=== PATIENT | female | born 1945 | race Two or more races ===

== ENCOUNTER 2019-08-04 17:30 | Inpatient (IN) | payer BC, OTHER ==
[~2019-08-04] VITALS: Ht 165.1 cm; Wt 103.7 kg
[2019-08-04] VITALS (12 sets, daily range): BP systolic 106–184; BP diastolic 53–120
[2019-08-04] MEDS ORDERED: ALBUTEROL SULF 2.5 MG/0.5ML(0.5%) NEB SOLN ONE (17:40)
[2019-08-04] MEDS ORDERED: IPRATROPIUM BROM 0.5 MG/2.5ML INH SOL ONE (17:40)
[2019-08-04] MEDS ORDERED: SUCCINYLCHOLINE CHLORIDE 20 MG/ML 10ML VIAL IV ONE (17:45)
[2019-08-04] MEDS ORDERED: methylPREDNISolone SOD SUCC 125 MG/2 ML VL IV ONE (17:45)
[2019-08-04] MEDS ORDERED: ETOMIDATE (2MG/ML) 20ML VIAL IV ONE (17:45)
--- NOTE | 2019-08-04 17:45 | NUR ---
RT NOTE PT WAS INTUBATED VIA ONE ATTEMPT BY ER DR HIGUERA WITH 7.5 ETT AND SECURED WITH ANCHORFAST AT 23 CM AT THE TEETH/24 CM AT THE LIP. + COLOR CHANGE ON CO2 DETECTOR AND BILATERAL CHEST RISE NOTED. BS ARE COARSE TO AUSCULTATION. PT WAS SUCTIONED FOR MODERATE BLOODY RETURN. SPUTUM SAMPLE COLLECTED AND SENT TO LAB. PT PLACED ON VENT V4 ON STATED SETTINGS. VENT IS PLUGGED TO RED OUTLET. ALARMS ARE ON AND AUDIBLE TO NURSING. AMBU BAG AT BEDSIDE AND CONNECTED TO O2 SOURCE. CONT ORDERED. POX 100% Addendum: 08/04/19 at 1807 by Sara Dillard RT Amended: Links added.
[2019-08-04] MEDS: MIDAZOLAM DRIP 50 mg/50mL 50 ML IV SCH (17:47)
[2019-08-04] MEDS ORDERED: PROPOFOL 100 ML IV ONE (17:58)
[2019-08-04] MEDS ORDERED: ALBUTEROL SULF 2.5 MG/0.5ML(0.5%) NEB SOLN NEB ONE (18:00)
[2019-08-04] MEDS ORDERED: IPRATROPIUM BROM 0.5 MG/2.5ML INH SOL NEB ONE (18:00)
[2019-08-04] MEDS: PROPOFOL 100 ML IV SCH ×2 (18:02→23:14)
[2019-08-04 18:10] LABS: Basophils # (auto) 0 uL; Basophils % (auto) 0.4 % (0.0-2.0); Eosinophils # (auto) 0.1 uL; Eosinophils % (auto) 1.4 % (0.0-7.0); Hematocrit 26.4 % (36.0-46.0); Hemoglobin 8.6 g/dL (12.2-16.2); Lymphocytes # (auto) 1.8 uL; Lymphocytes % (auto) 19.6 % (10.0-50.0); Mean Corpuscular Hgb Conc. 32.4 g/dL (32.0-36.0); Mean Corpuscular Volume 92.7 fL (80.0-100.0); Monocytes # (auto) 0.7 uL; Monocytes % (auto) 7.9 % (0.0-12.0); Neutrophils # (auto) 6.6 uL; Neutrophils % (auto) 70.7 % (37.0-80.0); Platelet Count (auto) 152 10^3/uL (140-450); Red Blood Cells 2.85 10^6/uL (4.0-5.20); Red Cell Distribution Width 15.1 % (11.8-14.3); White Blood Cell 9.4 10^3/uL (4.4-10.8)
--- NOTE | 2019-08-04 18:27 | NUR ---
RT NOTE PT WA SEEN BY RT FOR HHN TX. PT TOLERATES WELL INLINE WITH VENTILATOR. HR 99, RR 14, BS EXP WHEEZES, POX 100% Addendum: 08/04/19 at 1835 by Sara Dillard RT Amended: Links added.
[2019-08-04 18:40] LABS: Urine Bacteria NONE SEEN /hpf (None Seen); Urine Blood 2+ /uL (Negative); Urine Specific Gravity 1.009 (1.001-1.035); Urine WBC 1 /hpf (0 - 5)
[2019-08-04 18:46] LABS: Lactic Acid w/Reflex 2.2 mmol/L (0.4-2.0)
[2019-08-04] MEDS ORDERED: NOREPINEPHRINE 8 MG/250ML KIT 250 ML IV ONE (18:47)
[2019-08-04] MEDS: NOREPINEPHRINE 8 MG/250ML KIT 250 ML IV SCH (18:50)
--- NOTE | 2019-08-04 18:55 | NUR ---
RT NOTE ADVANCED ETT TO 24 CM AT THE TEETH PER VERBAL ORDER FROM DR HIGUERA. DR HIGUERA NOTIFIED Addendum: 08/04/19 at 2000 by Sara Dillard RT Amended: Links added.
--- NOTE | 2019-08-04 19:26 | NUR ---
RT NOTE INCREASED VT TO 600 AND DECREASED FIO2 TO 40% POST INTUBATION ABG RESULTS PER DR HIGUERA. REPEAT ABG AT 2200 Addendum: 08/04/19 at 2001 by Sara Dillard RT Amended: Links added.
[2019-08-04] MEDS ORDERED: PROMETHAZINE HCL 25 MG/ML 1ML IV PRN (19:45)
[2019-08-04] MEDS ORDERED: ALBUTEROL SULF 2.5 MG/0.5ML(0.5%) NEB SOLN NEB PRN (19:45)
[2019-08-04] MEDS ORDERED: LACTULOSE 20Gm/30ML SOLN PO PRN (19:45)
[2019-08-04] MEDS ORDERED: OSELTAMIVIR 75 MG CAP PO ONE (19:45)
[2019-08-04] MEDS ORDERED: SODIUM CHLORIDE 0.9% 500 ML IV ONE (19:45)
[2019-08-04] MEDS: OSELTAMIVIR 75 MG CAP PO SCH (19:57)
[2019-08-04] MEDS ORDERED: ENOXAPARIN SOD 40 MG/0.4 ML SYRINGE SC SCH (19:58)
[2019-08-04 20:01] LABS: Magnesium 2.2 mg/dL (1.6-2.6)
[2019-08-04 20:20] LABS: Anion Gap 8 (5-15); Carbon Dioxide 24 mmol/L (21-32); Chloride 110 mmol/L (98-107); Potassium 3.9 mmol/L (3.5-5.1); Sodium 142 mmol/L (136-145)
[2019-08-04 20:21] LABS: Alanine Aminotransferase 72 U/L (13-56); Alkaline Phosphatase 106 U/L (45-117); Aspartate Aminotransferase 74 U/L (15-37); BUN/Creatinine Ratio 13.2; Bilirubin, Total 0.5 mg/dL (0.2-1.0); Blood Urea Nitrogen 16 mg/dL (7-18); Calcium 7.4 mg/dL (8.5-10.1); GFR African American 56 mL/min; GFR Non-African American 46 mL/min; Glucose 140 mg/dL (74-106)
[2019-08-04 20:22] LABS: Albumin 2.8 g/dL (3.4-5.0)
--- NOTE | 2019-08-04 20:22 | NUR ---
RT NOTE ROUTINE VENT CHECK DONE. PT IS INTUBATED AND ON VENT V4 ON STATED SETTINGS IN THE ER. VENT IS PLUGGED TO RED OUTLET. ALARMS ARE ON AND AUDIBLE TO NURSING. AMBU BAG AT BEDSIDE AND CONNECTED TO O2 SOURCE. 7.5 ETT IS SECURED WITH ANCHORFAST AT 24 CM AT THE TEETH. BILATERAL BS ARE CTA. PT APPEARS COMFORTABLE AT THIS TIME. CONT ORDERED. POX 98% Addendum: 08/04/19 at 2025 by Sara Dillard RT Amended: Links added.
[2019-08-04] MEDS: SODIUM CHLORIDE 0.9% 1,000 ML IV SCH (20:42)
[2019-08-04] MEDS: LEVOFLOXACIN 500MG 100 ML IV SCH (20:44)
[2019-08-04] MEDS ORDERED: MORPHINE SULF INJ 2 MG/ML SYRINGE 1ML IV PRN (21:00)
[2019-08-04] MEDS ORDERED: NITROGLYCERIN 0.4 MG SL TAB SL PRN (21:00)
[2019-08-04] MEDS ORDERED: ENOXAPARIN SOD 80 MG/0.8ML SYRINGE SC ONE (21:15)
--- NOTE | 2019-08-04 22:00 | NUR ---
Admit to ICU from ER on vent CRISTI AVALOS Admitted to ICU via gurney on toolroom checker, intubated and being bagged by Respiratory Therapist. Patient transfered to bed, connected to mechanical ventilator by therapist, KESHIA at bedside. Patient connected to ICU monitoring, weighed by bedscale, oriented to Tamika Toth, primary RN, unit, ventilator and sedation. NOTE: PT TO UNIT ON DIPRIVAN GTT 40 MCG/KG/MIN, AND VERSED GTT 5 MG/HR. PT RESTING COMFORTABLY ON MECH VENT. 18 G IV TO L HAND, 20 G TO L UPPER CHEST, AND 20 GUAGE TO R HAND. ALL B&P. SR ON CONTENT CREATION MANAGER. OGT IN PLACE CLAMPED. SIMPSON TO GRAVITY DRAINING CLEAR YELLOW URINE WITH FEW SMALL CLOTS. BLANCHABLE PINK SKIN TO SACRAL AREA. OPTIFOAM GENTLE SACRAL DRESSING PLACED. PT REPOSITIONED WITH PILLOWS TO OFFLOAD BONY PROMINECES. NO INDICATION OF PAIN OBSERVED.
--- NOTE | 2019-08-04 22:10 | NUR ---
RT NOTE ROUTINE VENT CHECK DONE. PT IS INTUBATED AND ON VENT V4 ON STATED SETTINGS IN THE ICU. VENT IS PLUGGED TO RED OUTLET. ALARMS ARE ON AND AUDIBLE TO NURSING. AMBU BAG AT BEDSIDE AND CONNECTED TO O2 SOURCE. 7.5 ETT IS SECURED WITH ANCHORFAST AT 24 CM. BILATERAL BS ARE CTA. PT WAS TRANSPORTED TO ICU WITH ADRIAN HUNG AND KISHA GARCIA WITHOUT INCIDENT. PT WAS PLACED BACK ON VENT WITH SAME SETTINGS POST TRANSPORT. PT APPEARS COMFORTABLE AT THIS TIME. CONT ORDERED. POX 100% Addendum: 08/04/19 at 2328 by Sara Dillard RT Amended: Links added.
--- NOTE | 2019-08-04 22:30 | NUR ---
PT SON TO UNIT
[2019-08-05] VITALS (93 sets, daily range): BP systolic 89–169; BP diastolic 42–85
[2019-08-05] MEDS: ALBUTEROL SULF 2.5 MG/0.5ML(0.5%) NEB SOLN NEB SCH ×5 (00:09→23:55)
[2019-08-05] MEDS: IPRATROPIUM BROM 0.5 MG/2.5ML INH SOL NEB SCH ×5 (00:09→23:55)
[2019-08-05 04:27] LABS: Basophils # (auto) 0 uL; Eosinophils # (auto) 0 uL; Hematocrit 41.6 % (36.0-46.0); Hemoglobin 13.7 g/dL (12.2-16.2); Lymphocytes # (auto) 0.5 uL; Lymphocytes % (auto) 3.6 % (10.0-50.0); Mean Corpuscular Hemoglobin 29.3 pg (28.0-32.0); Mean Corpuscular Hgb Conc. 32.9 g/dL (32.0-36.0); Monocytes # (auto) 0.3 uL; Monocytes % (auto) 1.9 % (0.0-12.0); Neutrophils # (auto) 13.5 uL; Neutrophils % (auto) 94.5 % (37.0-80.0); Platelet Count (auto) 216 10^3/uL (140-450); Red Blood Cells 4.67 10^6/uL (4.0-5.20); Red Cell Distribution Width 14.9 % (11.8-14.3); White Blood Cell 14.2 10^3/uL (4.4-10.8)
[2019-08-05 04:39] LABS: Albumin 2.8 g/dL (3.4-5.0); BUN/Creatinine Ratio 14.4; Calcium 7.4 mg/dL (8.5-10.1); Potassium 4.1 mmol/L (3.5-5.1)
[2019-08-05 04:42] LABS: Bilirubin, Total 0.4 mg/dL (0.2-1.0); Total Protein 6.2 g/dL (6.4-8.2)
[2019-08-05] MEDS: methylPREDNISolone SOD SUCC 40 MG/ML VL IV SCH ×4 (05:45→17:24)
[2019-08-05] MEDS: PROPOFOL 100 ML IV SCH ×6 (06:30→23:13)
--- NOTE | 2019-08-05 07:15 | NUR ---
REPORT RECEIVED FROM LABORER/KEY MAN NURSE. PATIENT RESTING IN BED AT THIS TIME. RESPIRATIONS EVEN AND UNLABORED INTUBATED AND SEDATED. NO SIGNS OF ACUTE DISTRESS NOTED. BED IN LOW POSITION. WILL CONTINUE TO MONITOR.
[2019-08-05] MEDS: SODIUM CHLORIDE 0.9% 1,000 ML IV SCH ×3 (07:34→19:15)
[2019-08-05] MEDS: OSELTAMIVIR 75 MG CAP PO SCH (07:57)
[2019-08-05] MEDS: ENOXAPARIN SOD 120 MG/0.8 ML SYRINGE SC SCH ×4 (09:30→22:09)
[2019-08-05] MEDS: MIDAZOLAM DRIP 50 mg/50mL 50 ML IV SCH ×3 (09:31→20:32)
--- NOTE | 2019-08-05 10:20 | NUR ---
DIRECTOR OF DIGITAL MARKETING AT BEDSIDE
[2019-08-05] MEDS ORDERED: OPTISON 3ml Vial for INJ IV ONE ×2 (10:45→10:49)
--- NOTE | 2019-08-05 10:53 | NUR ---
ADMINISTERED OPTISON PER PROTOCOL DURING ECHOCARDIOGRAM, LOT# [id number], EXP 05/22/2020.
--- NOTE | 2019-08-05 11:00 | NUR ---
WOUND CARE NOTE: IN TO SEE PATIENT AT THIS TIME FOR SKIN INTEGRITY MONITORING. PATIENT WAS ADMITTED RECENTLY TO [facility] WITH THE DIAGNOSIS OF ACUTE RESPIRATORY FAILURE WITH COPD, ASTHMA EXACERBATION. CURRENT JI SCORE IS 12. SHE IS INTUBATED, SEDATED IN THE ICU AT THIS TIME. SHE IS WOUND FREE AT THIS TIME, WITH PINK, BLANCHABLE BONY PROMINENCES. SKIN/WOUND CARE PLAN IMPLEMENTED. RECOMMEND: FREQUENT TURN SCHEDULE Q 2 HOURS, PRN CONDITION PERMITS, WITH PRESSURE REDISTRIBUTION USING PILLOWS/WEDGES, BID/PRN APPLICATION WITH MOISTURE BARRIER CREAM, OPTIFOAM GENTLE SACRAL DRESSING PREVENTATIVE, DIETARY CONSULT, CONTINUED MONITORING BY WOUND CARE TEAM.
--- NOTE | 2019-08-05 11:02 | NUR ---
DR TALBOT AT BEDSIDE TO ASSESS PATIENT AND DISCUSS PLAN OF CARE. ALL ORDERS NOTED IN CHART. MD UPDATED FAMILY ON PATIENT STATUS.
[2019-08-05] MEDS ORDERED: ASPirin 81 mg TAB PO ONE (11:15)
[2019-08-05] MEDS ORDERED: PANTOPRAZOLE 40 MG/10 ML VIAL INJ IV ONE (11:15)
--- NOTE | 2019-08-05 12:08 | NUR ---
DR ENCISO AT BEDSIDE TO ASSESS PATIENT AND DISCUSS PLAN OF CARE. ALL ORDERS NOTED IN CHART.
--- NOTE | 2019-08-05 13:15 | NUR ---
Nutrition Assessment Notes Please refer to link for full assessment notes Est energy needs: [id number] kcals (14-18 kcal/kgBW) Est protein needs: 56-70 gms/day (0.8-1.0 gm/kgAdjBW) Will continue to monitor and reassess prn Addendum: 08/05/19 at [address] Amended: Links added.
--- NOTE | 2019-08-05 16:00 | NUR ---
DR KWAN AT BEDSIDE TO ASSESS PATIENT AND DISCUSS PLAN OF CARE. ALL ORDERS NOTED IN CHART.
--- NOTE | 2019-08-05 16:30 | NUR ---
Respiratory note: INCREASE RR TO [address] KWAN ORDER. PT TOLERATING VENT CHANGE WELL. ABG IN 2 HOURS POST VENT CHANGE. RN AWARE.
[2019-08-05] MEDS: LEVOFLOXACIN 500MG 100 ML IV SCH (17:25)
[2019-08-05] MEDS: NOREPINEPHRINE 8 MG/250ML KIT 250 ML IV SCH (18:45)
--- NOTE | 2019-08-05 20:00 | NUR ---
RECIEVED PT VENTILATED AND SEDATE WITH PROPOFOL GTT AT 45MCG/KG/ AND VERSED GTT AT 6MG/HR, SR 80'S BP STABLE, SEE INTERVENTIONS FOR HEAD TO TOE ASSESSMENT AND VITAL SIGNS, FAMILY IN TO VISIT, UPDATE GIVEN, QUESTIONS ANSWERED, SON PLEASED WITH THE DECREASE IN FIO2
--- NOTE | 2019-08-05 21:01 | NUR ---
Midline Placement: Patient not educated on need for midline placement. Patient sedated. 4Fr 20cm midline inserted via right basilic vein using Ultrasound. Sterile technique utilized. Blood return obtained from the single lumen and flushed easily with NS using proper technique. Midline secured with saline lock; biodisc and occlusive dressing applied. Primary RN notified. Midline lot #[id number]. External length 0cm Internal length 20cm
[2019-08-05] MEDS: ATORVASTATIN 20 MG TAB PO SCH (22:08)
[2019-08-06] VITALS (98 sets, daily range): BP systolic 89–175; BP diastolic 27–94
--- NOTE | 2019-08-06 | NUR ---
UPDATE: VS STABLE, NO VENT CHANGES, NO CHANGES ON GTTS
[2019-08-06] MEDS: methylPREDNISolone SOD SUCC 40 MG/ML VL IV SCH ×4 (00:34→18:14)
--- NOTE | 2019-08-06 02:00 | NUR ---
COMPLETE BATH AND LINEN CHANGE, TOLERATING ACTIVITY WELL, SKIN INTACT
[2019-08-06] MEDS: SODIUM CHLORIDE 0.9% 1,000 ML IV SCH ×3 (03:15→19:35)
[2019-08-06 04:36] LABS: Basophils # (auto) 0 uL; Basophils % (auto) 0.1 % (0.0-2.0); Eosinophils # (auto) 0.1 uL; Eosinophils % (auto) 0.7 % (0.0-7.0); Hematocrit 37.8 % (36.0-46.0); Hemoglobin 12.7 g/dL (12.2-16.2); Lymphocytes # (auto) 0.6 uL; Lymphocytes % (auto) 3.2 % (10.0-50.0); Mean Corpuscular Hemoglobin 29.6 pg (28.0-32.0); Mean Corpuscular Hgb Conc. 33.7 g/dL (32.0-36.0); Monocytes # (auto) 0.8 uL; Monocytes % (auto) 4.1 % (0.0-12.0); Neutrophils # (auto) 17.1 uL; Neutrophils % (auto) 91.9 % (37.0-80.0); Platelet Count (auto) 188 10^3/uL (140-450); Red Cell Distribution Width 14.6 % (11.8-14.3); White Blood Cell 18.6 10^3/uL (4.4-10.8)
[2019-08-06 04:44] LABS: BUN/Creatinine Ratio 17.3; Calcium 7.5 mg/dL (8.5-10.1); Magnesium 2.2 mg/dL (1.6-2.6); Potassium 3.7 mmol/L (3.5-5.1)
[2019-08-06] MEDS: ALBUTEROL SULF 2.5 MG/0.5ML(0.5%) NEB SOLN NEB SCH ×6 (06:00→22:08)
[2019-08-06] MEDS: IPRATROPIUM BROM 0.5 MG/2.5ML INH SOL NEB SCH ×6 (06:00→22:08)
--- NOTE | 2019-08-06 07:00 | NUR ---
REPORT RECEIVED FROM HIGH MAN NURSE. PATIENT RESTING IN BED INTUBATED AND SEDATED. RESPIRATIONS EVEN BUT LABORED, PATIENT USING ACCESSORY MUSCLES. ADJUSTED SEDATIONS PER PROTOCOL. BED IN LOW POSITION. WILL CONTINUE TO MONITOR.
[2019-08-06] MEDS: PROPOFOL 100 ML IV SCH ×5 (08:27→22:39)
--- NOTE | 2019-08-06 08:43 | NUR ---
URINE SENT FOR CULTURE
--- NOTE | 2019-08-06 08:50 | NUR ---
DR TALBOT AT BEDSIDE TO ASSESS PATIENT AND DISCUSS PLAN OF CARE. MD MADE AWARE OF PATIENTS RESPIRATORY STATUS AND URINE CONCENTRATION AND COLOR. ALL ORDERS NOTED IN CHART.
[2019-08-06] MEDS ORDERED: SODIUM CHLORIDE 0.9% 500 ML IV ONE (09:00)
[2019-08-06] MEDS ORDERED: VANCOMYCIN PER PHARMACY 0 MG IV SCH (09:00)
[2019-08-06 09:08] LABS: Urine Bacteria FEW /hpf (None Seen); Urine Blood 3+ /uL (Negative); Urine Mucus FEW (None Seen); Urine Specific Gravity 1.015 (1.001-1.035); Urine WBC 205 /hpf (0 - 5)
[2019-08-06] MEDS ORDERED: VANCOMYCIN 1GM/250ML 250 ML IV ONE (09:30)
[2019-08-06] MEDS: PANTOPRAZOLE 40 MG/10 ML VIAL INJ IV SCH (09:46)
[2019-08-06] MEDS: ASPirin 81 mg TAB PO SCH (09:47)
[2019-08-06] MEDS: ENOXAPARIN SOD 120 MG/0.8 ML SYRINGE SC SCH ×2 (09:47→22:06)
--- NOTE | 2019-08-06 09:51 | NUR ---
DR KIRK AT BEDSIDE TO ASSESS PATIENT AND DISCUSS PLAN OF CARE. ALL ORDERS NOTED IN CHART.
[2019-08-06] MEDS ORDERED: ALBUMIN 25% 100 ML IV ONE (10:00)
[2019-08-06] MEDS ORDERED: FUROSEMIDE 20 MG/2 ML VIAL IV ONE (10:00)
[2019-08-06] MEDS ORDERED: ALBU2TAB4 PO (11:33)
[2019-08-06] MEDS ORDERED: ONDA-143 PO (11:33)
[2019-08-06] MEDS ORDERED: LORA0.5T12 PO (11:33)
[2019-08-06] MEDS ORDERED: CLOP75TA28 PO (11:33)
[2019-08-06] MEDS ORDERED: LEV100T PO (11:33)
[2019-08-06] MEDS ORDERED: ASPI-498 OR (11:33)
[2019-08-06] MEDS ORDERED: OMEP20TA PO (11:33)
[2019-08-06] MEDS ORDERED: METO-169 PO (11:33)
[2019-08-06] MEDS ORDERED: CLON0.2T PO (11:33)
--- NOTE | 2019-08-06 13:38 | NUR ---
CHANGE IN RESPIRATORY STATUS PATIENT HAVING HIGH PEAK PRESSURES IN 50'S ON VENTILATOR AND RR INCREASED TO 30-40'S, TACHYCARDIC 120'S, BLOOD PRESSURE 160'S SYSTOLIC. INCREASED SEDATIONS PER PROTOCOL. RESPIRATORY THERAPIST AT BEDSIDE. PER MD ADMINISTER 15MG ALBUTEROL CONTINUOUS TREATMENT. ALL ORDERS NOTED IN CHART.
[2019-08-06] MEDS ORDERED: ALBUTEROL SULF 2.5 MG/0.5ML(0.5%) NEB SOLN NEB ONE ×3 (13:45→19:00)
--- NOTE | 2019-08-06 15:10 | NUR ---
CHANGE IN RESPIRATORY STATUS PATIENT HAVING HIGH PEAK PRESSURES IN 50'S ON VENTILATOR AND RR INCREASED TO 30'S, TACHYCARDIC 120'S, BLOOD PRESSURE 150'S SYSTOLIC. INCREASED SEDATIONS PER PROTOCOL. RESPIRATORY THERAPIST AT BEDSIDE. PER MD ADMINISTER 15MG ALBUTEROL CONTINUOUS TREATMENT. ALL ORDERS NOTED IN CHART.
[2019-08-06] MEDS: MIDAZOLAM DRIP 50 mg/50mL 50 ML IV SCH ×2 (15:28→23:00)
--- NOTE | 2019-08-06 15:56 | NUR ---
PAGED DR TALBOT AND DR KWAN TO OBTAIN MORE SEDATIONS PATIENT IS AT MAXIMUM RATE ON VERSED AND PROPOFOL. AWAITING CALL BACK.
[2019-08-06] MEDS: BUDESONIDE (INHALATION) 0.5 MG/2 ML NEB NEB SCH ×2 (15:58→18:19)
--- NOTE | 2019-08-06 15:58 | NUR ---
SPOKE TO DR TALBOT ABOUT PATIENTS RESPIRATORY STATUS. PER MD START PATIENT ON FENTANYL DRIP PER PROTOCOL.
--- NOTE | 2019-08-06 16:00 | NUR ---
UNABLE TO TURN PATIENT AT THIS TIME DUE RESPIRATORY STATUS BEING UNSTABLE. WILL CONTINUE TO MONITOR.
[2019-08-06] MEDS: fentaNYL Drip 2500mCg/250mlNS 250 ML IV SCH (16:08)
[2019-08-06] MEDS: LEVOFLOXACIN 500MG 100 ML IV SCH (18:14)
[2019-08-06] MEDS: NOREPINEPHRINE 8 MG/250ML KIT 250 ML IV SCH (18:45)
--- NOTE | 2019-08-06 18:49 | NUR ---
CHANGE IN RESPIRATORY STATUS PATIENT HAVING HIGH PEAK PRESSURES IN 50'S ON VENTILATOR AND RR INCREASED TO 30'S-40'S, TACHYCARDIC 130'S, BLOOD PRESSURE 150'S SYSTOLIC. INCREASED SEDATIONS PER PROTOCOL. RESPIRATORY THERAPIST AT BEDSIDE. PER MD ADMINISTER 15MG ALBUTEROL CONTINUOUS TREATMENT AND START PATIENT ON PARALYTIC. ALL ORDERS NOTED IN CHART.
--- NOTE | 2019-08-06 19:05 | NUR ---
ABOUT 4 MIN AFTER PT RECEIVING HER SCHEDULED TX @ 1126, PT BEGAN TO GO GHANSHYAM BRONCHOSPASM. HR WENT TO THE 120-130S, RR 20-40 AND SPO2 DROPPED TO THE MID 80S. TIGHT EXP WHEEZING HEARD ON RIGHT SIDE AND LEFT SIDE WAS VERY DIMINISHED. DR. KWAN WAS CALLED AND 15MG ALBUTEROL WAS ORDERED WELL A PARALYTIC. 15MG ALBUTEROL WAS GIVEN @ THIS TIME
[2019-08-06] MEDS: ATRACURIUM BESYLATE 1,000 MG in D5W 5% 150 ML IV SCH (19:45)
--- NOTE | 2019-08-06 20:05 | NUR ---
SPOKE TO DR KWAN TO INFORM OF PATIENT RESPIRATORY STATUS. INSPIRATORY PRESSURES CONTINUE TO REMAIN IN THE 50'S AFTER PARALYTIC ON BOARD. PER MD PLACE PATIENT ON PRESSURE CONTROL SETTINGS AND ABG IN 1 HOUR. ALL ORDERS NOTED IN CHART AND RESPIRATORY THERAPIST INFORMED.
--- NOTE | 2019-08-06 20:41 | NUR ---
SPOKE TO DR KWAN ON PATIENT VENTILATOR CHANGES AND INCREASE IN CO2 TO 80'S PER MD RESPIRATORY THERAPIST TO ADJUST RESPIRATORY RATE NEEDED. INFORMED RESPIRATORY THERAPIST.
--- NOTE | 2019-08-06 20:45 | NUR ---
ASSUMED CARE, AT THIS TIME FIO2 40% PC 25 RATE 22 PIP 29.6 ETCO2 55, SA02 97% HR 130'S, BP 104/39, PREVIOUSLY TRACIUM GTT STARTED PER PROTOCOL ORDERED AND TITRATED FOR TOF GOAL 2/4, CURRENTLY TRACIUM GTT AT 3 MCG/KG/MIN TOF 0/4, WILL DECRESED TO 2, SEE INTERVENTIONS FOR HEAD TO TOE ASSESSMENT, PT HEMODYNAMICALLY UNSTABLE AT THIS TIME, NOT REPOSITIONED
--- NOTE | 2019-08-06 21:30 | NUR ---
TOF REMAINS 0/4, TRACIUM GTT NOW @ 1MCG/KG/MIN, ABG DRAWN BY RT AND REPORTED TO DR. KWAN BY RT, ORDERS RECIEVED TO GIVE 3 AMPS SODIUM BICARBONATE IV, ABG TO FOLLOW IN 1 HR POST
[2019-08-06] MEDS ORDERED: SODIUM BICARBONATE 8.4% INJ 50ML SYRINGE ONE (21:32)
[2019-08-06] MEDS ORDERED: SODIUM BICARBONATE 8.4 % INJ 50ML VIAL IV ONE ×2 (21:45→23:00)
--- NOTE | 2019-08-06 22:00 | NUR ---
FIO2 DECREASED TO 30% BY RT AT 2208, TOF NOW 4/4, TRACIUM GTT INCREASED TO 2 MCG/KG/MIN , SBP HOVERING IN THE 90'S
[2019-08-06] MEDS: ATORVASTATIN 20 MG TAB PO SCH (22:05)
[2019-08-06] MEDS: ACETYLCYSTEINE 20%(200MG/ML) SOL 4ML NEB SCH (22:08)
--- NOTE | 2019-08-06 22:42 | NUR ---
G DRAWN BY RT AND RESULTS REPORTED TO DR. KWAN BY RT
--- NOTE | 2019-08-06 23:10 | NUR ---
2 AMPS SODIUM BICARBONATE GIVEN THEN 1/2NS WITH 2 AMPS BICARB TO FOLLOW AT 80MLS/HR
[2019-08-06] MEDS: SODIUM BICARBONATE 50ML VIAL 100 ML in SOD CHL 0.45% 1,000 ML IV SCH (23:45)
[2019-08-07] VITALS (99 sets, daily range): BP systolic 91–125; BP diastolic 36–62
[2019-08-07] MEDS: NOREPINEPHRINE 8 MG/250ML KIT 250 ML IV SCH
--- NOTE | 2019-08-07 | NUR ---
SBP 90'S MAP MID 50'S, LEVOPHED GTT STARTED AT 2MCG/MIN, NO CHANGES ON OTHER GTTS, MAX PROPOFOL, MAX FENTANYL, MAX VERSED, RESPIRATORY STATUS MORE STABLE, FIO2 30% RATE 22 PIP 31 ETCO2 42 SAO2 95%, TOF3/4, TRACIUM GTT NOW 5MC/KG/MIN
[2019-08-07] MEDS: methylPREDNISolone SOD SUCC 40 MG/ML VL IV SCH ×4 (00:12→18:07)
--- NOTE | 2019-08-07 01:30 | NUR ---
PT TRIED TO REPOSITION ONTO RIGHT SIDE.. DESATURATED TO SAO2 89-90% PLACED BACK ONTO BACK, BUT DID RECOVER AFTER ABOUT 15MIN
[2019-08-07] MEDS: IPRATROPIUM BROM 0.5 MG/2.5ML INH SOL NEB SCH ×6 (01:55→22:14)
[2019-08-07] MEDS: ALBUTEROL SULF 2.5 MG/0.5ML(0.5%) NEB SOLN NEB SCH ×6 (01:55→22:14)
--- NOTE | 2019-08-07 02:45 | NUR ---
TOF GOAL NOW AT 2/4 WITH TRACIUM GTT AT 5MCG/KG/MIN
[2019-08-07] MEDS: SODIUM CHLORIDE 0.9% 1,000 ML IV SCH ×3 (03:15→18:51)
[2019-08-07 03:50] LABS: Basophils # (auto) 0 uL; Eosinophils # (auto) 0 uL; Hematocrit 35.8 % (36.0-46.0); Lymphocytes # (auto) 0.5 uL; Lymphocytes % (auto) 2.7 % (10.0-50.0); Mean Corpuscular Hemoglobin 29.4 pg (28.0-32.0); Mean Corpuscular Hgb Conc. 33.5 g/dL (32.0-36.0); Mean Corpuscular Volume 87.9 fL (80.0-100.0); Monocytes % (auto) 5.1 % (0.0-12.0); Neutrophils # (auto) 17.8 uL; Neutrophils % (auto) 92.2 % (37.0-80.0); Platelet Count (auto) 205 10^3/uL (140-450); Red Blood Cells 4.07 10^6/uL (4.0-5.20); Red Cell Distribution Width 14.8 % (11.8-14.3); White Blood Cell 19.3 10^3/uL (4.4-10.8)
[2019-08-07 04:05] LABS: Magnesium 2.3 mg/dL (1.6-2.6)
[2019-08-07 04:08] LABS: BUN/Creatinine Ratio 19.4
[2019-08-07 04:23] LABS: Potassium 2.9 mmol/L (3.5-5.1)
--- NOTE | 2019-08-07 05:00 | NUR ---
K+ 2.9, MESSAGE LEFT WITH DR. TALBOT ANSWERING SERVICE, PT OOZING BLOOD FROM RIGHT UPPER ARM MIDLINE SITE AND OLD VENIPUNCTURE SITE ON LEFT HAND, MIDLINE DRSG CHANGED
[2019-08-07] MEDS ORDERED: VANCOMYCIN 1GM/250ML 250 ML IV SCH (06:00)
--- NOTE | 2019-08-07 06:00 | NUR ---
PARTIAL BATH AND RAYMON CHANGED, PT TOLERATED THE ACTIVITY AT THIS TIME, TRACILUM GTT AT 4MCG/KG/MIN TOF 2/4 , SPB 120'S MAP >62, LEVO GTT TURNED OFF, NO FURTHER VENT CHANGES, RECIEVED CALL FROM DR. TALBOT, ORDERS RECIEVED FOR RAUL PADILLA
[2019-08-07] MEDS: BUDESONIDE (INHALATION) 0.5 MG/2 ML NEB NEB SCH ×2 (06:15→18:23)
[2019-08-07] MEDS: ACETYLCYSTEINE 20%(200MG/ML) SOL 4ML NEB SCH ×3 (06:15→22:14)
[2019-08-07] MEDS ORDERED: POTASSIUM CHL 20MEQ/100ML 200 ML IV ONE (06:23)
[2019-08-07] MEDS: POTASSIUM CHL 20MEQ/100ML 100 ML IV SCH ×4 (06:30→22:13)
--- NOTE | 2019-08-07 07:00 | NUR ---
REPORT ENDORSED TO ABISAI CAMPBELL
[2019-08-07 07:30] LABS: INR 1.04 (0.9-1.15)
--- NOTE | 2019-08-07 08:00 | NUR ---
TRAIN OF FOUR 2 OF 4 TWITCHES NOTED USING BASELINE MA 6. PARALYTIC ATRACURIUM 4.5 MCG/KG/MIN.
--- NOTE | 2019-08-07 08:00 | NUR ---
TURNING HELD- PATIENT HEMODYNAMICALLY UNSTABLE WILL CONTINUE TO REASSESS
[2019-08-07] MEDS: PROPOFOL 100 ML IV SCH ×4 (08:16→22:47)
[2019-08-07] MEDS: MIDAZOLAM DRIP 50 mg/50mL 50 ML IV SCH ×2 (09:29→11:37)
[2019-08-07] MEDS: ASPirin 81 mg TAB PO SCH (10:00)
[2019-08-07] MEDS: ENOXAPARIN SOD 120 MG/0.8 ML SYRINGE SC SCH ×2 (10:00→22:13)
--- NOTE | 2019-08-07 10:22 | NUR ---
PATIENTS SON AT BEDSIDE UPDATED ON STATUS THROUGHOUT THE NIGHT AND PLAN OF CARE. ADDRESSED CONCERNS.
--- NOTE | 2019-08-07 11:10 | NUR ---
TRAIN OF FOUR 2 OF 4 TWITCHES NOTED USING BASELINE MA 6. PARALYTIC ATRACURIUM 4.5 MCG/KG/MIN.
[2019-08-07] MEDS: PANTOPRAZOLE 40 MG/10 ML VIAL INJ IV SCH (11:36)
--- NOTE | 2019-08-07 13:45 | NUR ---
DR KWAN AT BEDSIDE DISCUSSED PLAN OF CARE, NEW ORDERS RECEIVED
[2019-08-07] MEDS: SODIUM BICARBONATE 50ML VIAL 100 ML in SOD CHL 0.45% 1,000 ML IV SCH (13:57)
--- NOTE | 2019-08-07 14:09 | NUR ---
DR TALBOT AT BEDSIDE
[2019-08-07] MEDS ORDERED: FUROSEMIDE 40 MG/4 ML VIAL IV ONE (14:15)
[2019-08-07 15:19] LABS: BUN/Creatinine Ratio 23.7; Calcium 6.4 mg/dL (8.5-10.1); Potassium 3.4 mmol/L (3.5-5.1)
--- NOTE | 2019-08-07 16:00 | NUR ---
TRAIN OF FOUR 2 OF 4 TWITCHES NOTED USING BASELINE MA 6. PARALYTIC ATRACURIUM 4.5 MCG/KG/MIN.
[2019-08-07] MEDS: PIPERACILLIN-TAZOB 3.375GM 100 ML IV SCH ×2 (16:20→22:13)
[2019-08-07] MEDS: fentaNYL Drip 2500mCg/250mlNS 250 ML IV SCH (17:45)
--- NOTE | 2019-08-07 17:54 | NUR ---
Assessment Pt is a 74 yr old intubated female. Pt's son was bedside and answered question on behalf of patient. Pt lives with her boyfriend and her son Beka, is her emergency contact at [phone]. Pt uses 02 and is was mostly independent with ADL's. Pt's Primary is Bigot, no AD on file and pt receives SSDI of 1300 about. No HH and lots of family support. Further needs will be assessed closer to d/c. Addendum: 08/08/19 at 1757 by GIANA HOWELL Amended: Links added.
--- NOTE | 2019-08-07 20:00 | NUR ---
ASSESSMENT: TOF 4/4, SATS 97%, RR 21, NON LABORED. VENTED - 7.5 FR AT 26 CM LIP LINE. ETT SUCTION, NO SECRETIONS. ORAL CARE PROVIDED. SIMPSON CATH TO DD, YELLOW URINE WITH LARGE AMT. OF SEDIMENT. ABDOMEN - LARGE AND SOFT, NO BM AT THIS TIME, HYPOACTIVE BOWEL SOUNDS. NGT CLAMPED. IV TO RFA #20 X2 INTACT. MID LINE TO RUP INTACT WITH SEDATION INFUSING THRU IT. ATRACARIUM INFUSING THRU IV SITE TO LFA. GENERALIZED EDEMA, PITTING, NO WEEPING. PLACED ON BED ROTATION. SKIN INTACT AT THIS TIME. HEELS CLEAR, WELL ELBOW. SACRUM WITH PROPHYLACTIC DRESSING. VSS, AFEBRILE. PUPILS SLUGGISH BILATERALLY. CONTINUES ON FENTANYL, VERSED AND PROPOFOL, BICARB DRIP CONTINUES WELL. WILL CONTINUE TO MONITOR.
[2019-08-07] MEDS: LINEZOLID 600MG/300ML 300 ML IV SCH (21:03)
[2019-08-07] MEDS: ATORVASTATIN 20 MG TAB PO SCH (22:13)
[2019-08-07] MEDS ORDERED: ATRACURIUM BESYLATE (10 MG/ ML) 10 ML VIAL ONE (22:44)
[2019-08-07 23:23] LABS: BUN/Creatinine Ratio 22.4; Calcium 6.9 mg/dL (8.5-10.1); Potassium 4.3 mmol/L (3.5-5.1)
[2019-08-08] VITALS (88 sets, daily range): BP systolic 104–158; BP diastolic 49–79
--- NOTE | 2019-08-08 | NUR ---
TOF 4/4, PT. RESPONDS TO DEEP PAINFUL STIMULI BY SLIGHTLY GRIMACING. SEDATION AND ATRACARIUM CONTINUES. LUNGS SOUNDS WHEEZY, DIMINISHED AT BASES. NO SECRETIONS DURING ETT SUCTION. URINE - SEDIMENTOUS, YELLOW. CONTINUES ON BED ROTATION.
[2019-08-08] MEDS: PROPOFOL 100 ML IV SCH ×5 (01:53→23:47)
[2019-08-08] MEDS: ATRACURIUM BESYLATE 1,000 MG in D5W 5% 150 ML IV SCH ×2 (01:56→06:00)
[2019-08-08] MEDS: methylPREDNISolone SOD SUCC 40 MG/ML VL IV SCH ×3 (01:59→11:52)
[2019-08-08] MEDS: ALBUTEROL SULF 2.5 MG/0.5ML(0.5%) NEB SOLN NEB SCH ×7 (02:24→23:54)
[2019-08-08] MEDS: IPRATROPIUM BROM 0.5 MG/2.5ML INH SOL NEB SCH ×7 (02:24→23:54)
--- NOTE | 2019-08-08 04:00 | NUR ---
TOF 4/4, SATS 96%, NO HIGH PEEP, VOLUMES WNL. VSS. COMPLETE BED BATH GIVEN, DELMY CARE PROVIDED, LINEN CHANGED. WILL CONTINUE TO MONITOR.
[2019-08-08] MEDS: SODIUM BICARBONATE 50ML VIAL 100 ML in SOD CHL 0.45% 1,000 ML IV SCH ×2 (04:06→17:00)
[2019-08-08] MEDS: fentaNYL Drip 2500mCg/250mlNS 250 ML IV SCH ×2 (04:49→20:30)
[2019-08-08] MEDS: MIDAZOLAM DRIP 50 mg/50mL 50 ML IV SCH ×3 (05:07→23:46)
[2019-08-08] MEDS: PIPERACILLIN-TAZOB 3.375GM 100 ML IV SCH ×3 (05:30→23:02)
[2019-08-08] MEDS: BUMETANIDE 2.5mg/10ml (0.25 mg/ml) INJ IV SCH ×2 (05:30→18:29)
[2019-08-08 05:37] LABS: Basophils # (auto) 0 uL; Basophils % (auto) 0.1 % (0.0-2.0); Eosinophils # (auto) 0 uL; Hematocrit 33.8 % (36.0-46.0); Hemoglobin 11.4 g/dL (12.2-16.2); Lymphocytes # (auto) 0.5 uL; Lymphocytes % (auto) 3.2 % (10.0-50.0); Mean Corpuscular Hemoglobin 29.7 pg (28.0-32.0); Mean Corpuscular Hgb Conc. 33.7 g/dL (32.0-36.0); Mean Corpuscular Volume 88.3 fL (80.0-100.0); Monocytes # (auto) 0.8 uL; Monocytes % (auto) 5.4 % (0.0-12.0); Neutrophils # (auto) 13.1 uL; Neutrophils % (auto) 91.3 % (37.0-80.0); Platelet Count (auto) 146 10^3/uL (140-450); Red Blood Cells 3.83 10^6/uL (4.0-5.20); Red Cell Distribution Width 14.7 % (11.8-14.3); White Blood Cell 14.4 10^3/uL (4.4-10.8)
[2019-08-08] MEDS: ACETYLCYSTEINE 20%(200MG/ML) SOL 4ML NEB SCH ×3 (05:48→20:18)
--- NOTE | 2019-08-08 08:40 | NUR ---
SPOKE WITH DR KWAN UPDATED ON RECENT ABG AND CHEST XRAY. RECEIVED NEW ORDERS
--- NOTE | 2019-08-08 08:45 | NUR ---
ETT REPOSITIONED TO 27CM TO THE UPPER LIP, PER CHEST X-RAY REPORT AND DR KWAN. PT TOLERATING WELL.
[2019-08-08] MEDS: LINEZOLID 600MG/300ML 300 ML IV SCH ×2 (08:59→20:00)
--- NOTE | 2019-08-08 09:58 | NUR ---
PATIENT TRANSPORTED TO RADIOLOGY DEPARTMENT FOR CT SCAN ORDERED TRANSPORTED WITH RESPIRATORY THERAPY, BEDSIDE RN AND UPHOLSTERER LIMOUSINE AND HEARSE. CONNECTED TO PORTABLE VENTILATOR AND PORTABLE ELECTRICAL SYSTEMS DRAFTER. PATIENTS VITALS STABLE AT TIME OF TRANSPORT
--- NOTE | 2019-08-08 10:28 | NUR ---
PATIENT RETURNED FROM RADIOLOGY DEPARTMENT DESATURATION NOTED DURING TRANSFER TO CT TABLE. PULSE OX DROPPED TO 85%, RESPIRATORY THERAPIST BAGGED AND SATURATION INCREASED TO 100% THEN RECONNECTED TO PORTABLE VENTILATOR. STABLE VITALS DURING TRANSPORT BACK TO ICU. PATIENT RECONNECTED TO ICU MONITORS AND VENTILATOR. WILL CONTINUE TO MONITOR
[2019-08-08] MEDS: BUDESONIDE (INHALATION) 0.5 MG/2 ML NEB NEB SCH ×2 (10:42→18:10)
[2019-08-08] MEDS: PANTOPRAZOLE 40 MG/10 ML VIAL INJ IV SCH (11:51)
[2019-08-08] MEDS: ASPirin 81 mg TAB PO SCH (11:52)
[2019-08-08] MEDS: ENOXAPARIN SOD 120 MG/0.8 ML SYRINGE SC SCH ×2 (11:52→22:00)
[2019-08-08] MEDS: SODIUM CHLORIDE 0.9% 1,000 ML IV SCH ×2 (11:53→20:30)
--- NOTE | 2019-08-08 12:17 | NUR ---
SEDATION VACATION HELD- PATIENT UNSTABLE AT THIS TIME Addendum: 08/08/19 at 1217 by Orin Burks RN Amended: Links added.
--- NOTE | 2019-08-08 12:19 | NUR ---
Nutrition Follow-up Notes Wt.: 114.0 kg today. Pt's off the floor for a procedure when rounded this morning. Pt's currently intubated, sedated with Propofol @ 35.934 ml/hr, providing 964 kcal from Fat. Pt remains NPO, no order for alternate nutrition support yet at this time. Noted pt's for active Pulmonary and Cardiology consult. Est. Needs based on AdBW 71 k-175 kcal (20-25 kcal/kgAdBW), 71-85 gms pro (1.0-1.2 gms/kgAdBW). Will continue to monitor pertinent labs and reassess nutrient need prn Labs: Gluc 211 H, BUN 34 H, Cr 1.52 H, Ca 6.9 L, Trop I 0.508 H, Tpro 6.2 L, Alb 2.8 L Skin: Cyrus scale 11, high risk, skin intact per business risk consultant. GI: Pt's no bowel activity since 08/04/19 per business risk consultant. PES: Increased nutrient needs r/t acute/chronic medical condition aeb sedated, intubated, mod hypoalbuminemia, NPO. Altered nutrition related lab values r/t current/chronic medical condition aeb hyperglyc, hyperchlor, hypocalc, hypoalb, Elev RFTs, Elev LFTs, Obesity r/t food intake more than body requirement aeb 191% IBW and BMI of 39.8 kg/m2 and increased body adiposity Will continue to monitor NPO status, skin status, pertinent labs and weight trend. F/u in 2 to 3 days. Rec.: 1.) If still NPO in next 36 hrs, consider alternate/EN support of Jevity 1.2 Jose Roberto @ 35 ml/hr goal rate as tolerated while on current Propofol rate. 2.) If Albumin continues trending down, consider Prostat 1 pkt BID. 3.) Advance gradually to oral diet when medically appropriate. 4.) Refer pt to RD for further nutrition education and weight monitoring upon discharge. 5.) Continue current plan of care.
--- NOTE | 2019-08-08 13:08 | NUR ---
PATIENTS SON AT BEDSIDE UPDATED ON PATIENTS STATUS AND PLAN OF CARE. CONCERNS ADDRESSED
[2019-08-08] MEDS ORDERED: methylPREDNISolone SOD SUCC 125 MG/2 ML VL IV ONE (14:00)
[2019-08-08 15:04] LABS: BUN/Creatinine Ratio 24.4; Calcium 6.5 mg/dL (8.5-10.1); Potassium 4.2 mmol/L (3.5-5.1)
[2019-08-08] MEDS ORDERED: LACTULOSE 20Gm/30ML SOLN PO PRN (16:45)
--- NOTE | 2019-08-08 17:25 | NUR ---
DR KWAN AT BEDSIDE DISCUSSED PLAN OF CARE WITH PATIENTS VALERIA DENNISON. NEW ORDERS PLACED
[2019-08-08] MEDS: methylPREDNISolone SOD SUCC 125 MG/2 ML VL IV SCH ×2 (18:29→23:45)
[2019-08-08] MEDS ORDERED: ALBUTEROL SULF 2.5 MG/0.5ML(0.5%) NEB SOLN NEB PRN (19:30)
--- NOTE | 2019-08-08 20:00 | NUR ---
ADMITTED WITH DYSPNEA. FAILED CPAP AND WAS INTUBATED IN OUR ER. MD DIAGNOSIS: RESPIRATORY FAILURE WITH COPD AND ASTHMA EXACERBATION. RASHAD. PATIENT IS MORBIDLY OBESE. ORALLY INTUBATED. ORAL NGT CLAMPED. 50CC OF DARK GREEN WITHDRAWN FROM THE NGT AND RECLAMPED. PUPILS EQUAL AND BRISK. ORAL CARE. SUCTIONED ETT FOR NO SECRETIONS. LUNGS ARE TIGHT, WHEEZY. AT 2030 DROPPED O2 SATURATION TO 87%. RT NOTIFIED. THEY INCREASED THE FIO2 TO 50%, BRINGING THE O2 SAT UP TO 95%. ON ATRACURIUM DRIP. ON DAYSHIFT TODAY, SHE FAILED BEING OFF THIS DRIP. RESTARTED. ABDOMEN SOFT, LARGE AND ROUND. SIMPSON IN PLACE DRAINING CLEAR YELLOW LIQUID TO DOWN DRAIN BAG. PULSES PALPABLE. PLACED HER ON HER BACK. PILLOW UNDER LOWER LEGS KEEPING THE HEELS OFF BED. NSR WITHOUT ECTOPY. NO FEVER. ON MAX DOSES OF FENTANYL, VERSED AND DIPRIVAN. ONE MIDLINE CATHETER AND 4 PERIPHERAL IVS. NPO. ON PRESSURE CONTROL VENTILATION, RATE 22, PRESSURE 27. RR 22. GENERALIZED EDEMA. ON BICARB DRIP. BICARB LEVEL IS 30.6. DR AQUILES CARRENO.
--- NOTE | 2019-08-08 22:00 | NUR ---
INITIAL SUCTIONING, OBTAINED NO SECRETIONS. RT CAME, LAVAGED AND GOT SOME CREAMY SECRETIONS WITH BLOOD TINGE.LUNGS ARE TIGHT. FIO2 STABLE AT 50%. ATRACURIUM KEEPING PATIENT QUIET. REPOSITIONED TO HER LEFT SIDE. GENERALIZED EDEMA. PERIPHERAL IVS SHOW NO REDNESS. ADEQUATE URINE OUTPUT. NSR IN THE 70S. NO ECTOPY. PRESSURE CONTROL VENTILATION, RATE 22, BREATHING 22. PRESSURE IS 27. O2 SAT 93%,
[2019-08-08] MEDS: METOCLOPRAMIDE HCL 5MG/ml INJ 2ml VIAL IV SCH (23:02)
[2019-08-08] MEDS: ATORVASTATIN 20 MG TAB PO SCH (23:02)
[2019-08-09] VITALS (102 sets, daily range): BP systolic 119–169; BP diastolic 56–80
--- NOTE | 2019-08-09 | NUR ---
REPOSITIONED. NSR WITHOUT ECTOPY. STABLE ON SEDATION DRIPS. ABDOMEN SOFT. CLEAR YELLOW LIQUID IN SIMPSON. IVS SHOW NO ADDITIONAL SWELLING , REDNESS. PATIENT IS VERY EDEMETOUS. NORMAL TEMP
--- NOTE | 2019-08-09 02:00 | NUR ---
NO CHANGE IN STATUS. IVS SHOW NO REDNESS. GENERALIZED EDEMA PERSISTS. NSR WITHOUT ECTOPY. GOOD URINE OUTPUT. URINE IS A LIGHT GREEN COLOR NOW.
[2019-08-09] MEDS: PROPOFOL 100 ML IV SCH ×8 (02:39→23:03)
[2019-08-09] MEDS: MIDAZOLAM DRIP 50 mg/50mL 50 ML IV SCH ×6 (02:39→23:03)
--- NOTE | 2019-08-09 03:00 | NUR ---
AM LABS SENT
[2019-08-09] MEDS: ALBUTEROL SULF 2.5 MG/0.5ML(0.5%) NEB SOLN NEB SCH ×6 (03:37→18:03)
[2019-08-09] MEDS: IPRATROPIUM BROM 0.5 MG/2.5ML INH SOL NEB SCH ×6 (03:37→18:03)
[2019-08-09 04:30] LABS: BUN/Creatinine Ratio 28.1; Calcium 6.6 mg/dL (8.5-10.1); Magnesium 2.4 mg/dL (1.6-2.6); Potassium 3.7 mmol/L (3.5-5.1)
--- NOTE | 2019-08-09 04:30 | NUR ---
CHG BATH. LINEN CHANGE. AIR LEAK IN ETT CUFF. ADDED AIR. NSR WITHOUT ECTOPY. NO CHANGE IN DRIP RATES
[2019-08-09 04:33] LABS: Hematocrit 33.4 % (36.0-46.0); Hemoglobin 11.5 g/dL (12.2-16.2); INR 1.07 (0.9-1.15); Mean Corpuscular Hemoglobin 29.9 pg (28.0-32.0); Mean Corpuscular Hgb Conc. 34.4 g/dL (32.0-36.0); Mean Corpuscular Volume 86.9 fL (80.0-100.0); Partial Thromboplastin Time 34.7 sec (23.64-32.05); Platelet Count (auto) 145 10^3/uL (140-450); Red Blood Cells 3.85 10^6/uL (4.0-5.20); Red Cell Distribution Width 14.7 % (11.8-14.3); White Blood Cell 12.1 10^3/uL (4.4-10.8)
[2019-08-09 05:26] LABS: Basophils % (manual) 0 (0.0-2.0); Blast Cells 0; Metamyelocytes % 0; Promyelocytes % 0; Reactive Lymphocytes 0
--- NOTE | 2019-08-09 06:00 | NUR ---
VSS. NO CHANGES
[2019-08-09] MEDS: ACETYLCYSTEINE 20%(200MG/ML) SOL 4ML NEB SCH ×2 (06:12→14:40)
[2019-08-09] MEDS: BUMETANIDE 2.5mg/10ml (0.25 mg/ml) INJ IV SCH ×3 (06:26→21:19)
[2019-08-09] MEDS: methylPREDNISolone SOD SUCC 125 MG/2 ML VL IV SCH ×4 (06:27→23:47)
[2019-08-09] MEDS: PIPERACILLIN-TAZOB 3.375GM 100 ML IV SCH ×3 (06:27→21:19)
[2019-08-09] MEDS: METOCLOPRAMIDE HCL 5MG/ml INJ 2ml VIAL IV SCH ×3 (06:27→21:19)
[2019-08-09] MEDS: SODIUM BICARBONATE 50ML VIAL 100 ML in SOD CHL 0.45% 1,000 ML IV SCH (06:30)
[2019-08-09 07:18] LABS: Band Neutrophils % (manual) 6; Eosinophils % (manual) 1 (0-7); Lymphocytes % (manual) 6 (10.0-50.0); Monocytes % (manual) 4 (0-12); Myelocytes % 1
[2019-08-09] MEDS ORDERED: LIDOCAINE 2%HCL (LOCAL ANESTH.) INJ 20ML MDV ONE (08:10)
[2019-08-09] MEDS ORDERED: LIDOCAINE HCL 2% TOP JELLY 5ML TOP ONE (08:11)
[2019-08-09] MEDS ORDERED: EPINEPHrine HCL 1 MG/1 ML AMP ONE (08:11)
[2019-08-09] MEDS ORDERED: SODIUM CHLORIDE LOCK 0 ML ONE (08:11)
[2019-08-09] MEDS ORDERED: NALOXONE HCL 0.4 MG/ML VIAL ONE (08:13)
[2019-08-09] MEDS ORDERED: FLUMAZENIL 0.1 MG/ML INJ 10ML MDV IV ONE (08:13)
[2019-08-09] MEDS ORDERED: MIDAZOLAM HCL 5 MG/ML-1ML VIAL ONE (08:25)
[2019-08-09] MEDS ORDERED: fentaNYL CITRATE 100 MCG/2 ML VL ONE (08:25)
[2019-08-09] MEDS ORDERED: diphenhdrAMINE HCL 50 MG/1 ML VL ONE (08:25)
[2019-08-09] MEDS ORDERED: POTASSIUM CHL 20MEQ/100ML 100 ML IV ONE (08:30)
[2019-08-09] MEDS ORDERED: ACETYLCYSTEINE 20%(200MG/ML) SOL 4ML ONE (08:38)
[2019-08-09] MEDS: LINEZOLID 600MG/300ML 300 ML IV SCH ×2 (08:40→20:02)
[2019-08-09] MEDS: BUDESONIDE (INHALATION) 0.5 MG/2 ML NEB NEB SCH (09:45)
--- NOTE | 2019-08-09 09:45 | NUR ---
Respiratory note: ROUTINE MED NEB TX NOT GIVEN AT THIS TIME, DUE TO PATIENT UNDERGOING BRONCHOSCOPY BY DR. KWAN. WILL CONTINUE SCHEDULED MED NEB TX'S ORDERED.
--- NOTE | 2019-08-09 10:17 | NUR ---
Respiratory note: DR. KWAN INCREASED PEEP TO +8. ADRIAN GUALLPA IS AWARE. WILL CONTINUE TO MONITOR PT.
[2019-08-09] MEDS: ENOXAPARIN SOD 120 MG/0.8 ML SYRINGE SC SCH ×2 (11:16→21:19)
[2019-08-09] MEDS: PANTOPRAZOLE 40 MG/10 ML VIAL INJ IV SCH (11:16)
[2019-08-09] MEDS: ASPirin 81 mg TAB PO SCH (11:17)
--- NOTE | 2019-08-09 12:32 | NUR ---
Resumed care at 0715, orders reviewed and ongoing assessments being done. Being treated for multiple problems and remains intubated and sedated and receiving neuromuscular blockade with Atracurium. Monitoring TOF Q4 hours. 2 electrodes at left side of denominational and TOF response 3 twitches (75%) blocked. No need to increase is unresponsive with diprivan, versed and FentaNly at max. doses. Dr. Durham in unit performed a bronchoscopy, initiated at 0945. Procedure completed without incident and specimens collected. Jorge CAMPBELL in charge of specimens. Remains on pressure control ventilation. Dr. Durham at bedside once again at 1150 for central line placement. Placed line to left IJ without incident. Chest xray done and okay to use line per Dr. Durham. Earlier obtained consent from lakesha Ireland. Dr. Durham was able to speak to him earlier today.
--- NOTE | 2019-08-09 18:30 | NUR ---
Dr. Hopkins scissors grinder was into round. Discussed condition and reviewed medications and plan of care.
--- NOTE | 2019-08-09 19:30 | NUR ---
FIO2 Patient maintaining O2 saturations 88-89%, RT at bedside to increase Fio2 to 50%. Saturations increased to 91% and sustaining.
--- NOTE | 2019-08-09 20:00 | NUR ---
TOF Electrodes to right side of taoism, no skin issues noted; assessed TOF at level 4 with 3 of 4 twitches noted. Patient maxed on Fentanyl, Diprivan, and Versed with Atracurium infusing at 5 mcg/kg/min. Cough and gag very hypoactive, pupils 2-3 and sluggish, no response to painful stimuli noted. Will maintain current drip rates and continue to monitor.
[2019-08-09] MEDS: NOREPINEPHRINE 8 MG/250ML KIT 250 ML IV SCH ×2 (21:13→21:14)
[2019-08-09] MEDS: ATRACURIUM BESYLATE 1,000 MG in D5W 5% 150 ML IV SCH (21:14)
[2019-08-09] MEDS: ATORVASTATIN 20 MG TAB PO SCH (21:19)
[2019-08-10] VITALS (100 sets, daily range): BP systolic 89–176; BP diastolic 33–82
[2019-08-10] MEDS: BUDESONIDE (INHALATION) 0.5 MG/2 ML NEB NEB SCH ×2 (00:01→05:45)
[2019-08-10] MEDS: IPRATROPIUM BROM 0.5 MG/2.5ML INH SOL NEB SCH ×7 (00:01→17:51)
[2019-08-10] MEDS: ACETYLCYSTEINE 20%(200MG/ML) SOL 4ML NEB SCH ×3 (00:01→15:16)
[2019-08-10] MEDS: ALBUTEROL SULF 2.5 MG/0.5ML(0.5%) NEB SOLN NEB SCH ×7 (00:01→17:51)
[2019-08-10] MEDS: PROPOFOL 100 ML IV SCH ×5 (02:00→19:01)
[2019-08-10] MEDS: MIDAZOLAM DRIP 50 mg/50mL 50 ML IV SCH ×4 (02:00→18:00)
--- NOTE | 2019-08-10 02:00 | NUR ---
TLC DSG Left IJ TLC dressing coming off, oozing noted at insertion site. Changed dressing using sterile technique.
[2019-08-10 03:47] LABS: Hematocrit 34.5 % (36.0-46.0); Hemoglobin 11.8 g/dL (12.2-16.2); Mean Corpuscular Hemoglobin 29.6 pg (28.0-32.0); Mean Corpuscular Hgb Conc. 34.1 g/dL (32.0-36.0); Mean Corpuscular Volume 86.6 fL (80.0-100.0); Platelet Count (auto) 139 10^3/uL (140-450); Red Blood Cells 3.98 10^6/uL (4.0-5.20); Red Cell Distribution Width 14.2 % (11.8-14.3); White Blood Cell 13.1 10^3/uL (4.4-10.8)
[2019-08-10 03:57] LABS: Blast Cells 0; Eosinophils % (manual) 0 (0-7); Metamyelocytes % 0; Myelocytes % 0; Promyelocytes % 0; Reactive Lymphocytes 0
[2019-08-10 04:10] LABS: Potassium 3.4 mmol/L (3.5-5.1)
[2019-08-10 04:14] LABS: BUN/Creatinine Ratio 29.2; Calcium 6.8 mg/dL (8.5-10.1); Magnesium 2.3 mg/dL (1.6-2.6)
[2019-08-10 04:53] LABS: Band Neutrophils % (manual) 6
[2019-08-10 04:54] LABS: Lymphocytes % (manual) 8 (10.0-50.0); Monocytes % (manual) 6 (0-12)
[2019-08-10 04:58] LABS: Basophils % (manual) 0 (0.0-2.0)
[2019-08-10] MEDS: methylPREDNISolone SOD SUCC 125 MG/2 ML VL IV SCH ×3 (06:19→18:40)
[2019-08-10] MEDS: BUMETANIDE 2.5mg/10ml (0.25 mg/ml) INJ IV SCH ×3 (06:19→22:20)
[2019-08-10] MEDS: METOCLOPRAMIDE HCL 5MG/ml INJ 2ml VIAL IV SCH ×3 (06:19→22:20)
[2019-08-10] MEDS: PIPERACILLIN-TAZOB 3.375GM 100 ML IV SCH ×3 (06:19→22:20)
--- NOTE | 2019-08-10 06:21 | NUR ---
TLC DSG Left IJ TLC dressing saturated with blood again; changed dressing using sterile technique and applied Surgicel.
--- NOTE | 2019-08-10 07:10 | NUR ---
REPORT Care endorsed to ADRIAN Santiago
[2019-08-10] MEDS: LINEZOLID 600MG/300ML 300 ML IV SCH ×2 (07:55→20:42)
[2019-08-10] MEDS: ASPirin 81 mg TAB PO SCH (10:00)
[2019-08-10] MEDS: ENOXAPARIN SOD 120 MG/0.8 ML SYRINGE SC SCH ×2 (10:00→22:20)
[2019-08-10] MEDS: PANTOPRAZOLE 40 MG/10 ML VIAL INJ IV SCH (10:02)
[2019-08-10] MEDS: ATRACURIUM BESYLATE 1,000 MG in D5W 5% 150 ML IV SCH (11:00)
[2019-08-10 11:10] LABS: INR 1.12 (0.9-1.15); Partial Thromboplastin Time 34.2 sec (23.64-32.05)
--- NOTE | 2019-08-10 11:38 | NUR ---
Resumed care at 0730, orders reviewed and ongoing assessments being done. Being treated for multiple problems and remains intubated and sedated and receiving neuromuscular blockade with Atracurium. Monitoring TOF Q4 hours. 2 electrodes at left side of pentecostal and TOF response 3 twitches (75%) receptors blocked. No need to increase is unresponsive with diprivan, versed and FentaNly at max. doses. Prior shift reported blood oozing from central line (insertion site). Surgicel snow was applied to area. Upon arrival dressing was saturated. Removed dressing and cleansed per protocol and reapplied Surgicel snow to site and applied a pressure dressing. Continuing to monitor closely. Dr. Keller rounded at 1020 and made him aware that I held scheduled ASA and Lovenox due to the oozing from the central line. Noted that urine color pink and cloudy, possibly due to propofol administration. Collected a urinalysis sample and sent to lab. PT/PTT also collected, no critical values reported. Lety BULLOCK has been communicating with Dr. Durham throughout the shift and making ventilator changes. Remains on pressure support ventilation.
[2019-08-10] MEDS: POTASSIUM CHL 20MEQ/100ML 100 ML IV SCH ×2 (12:11→13:31)
--- NOTE | 2019-08-10 15:43 | NUR ---
Dr. Durham in to round at 1250. Discussed condition and plan of care. Continuing to ooze blood from central line site (left IJ). Dressing removed by Dr. Durham and assessed the situation. Area cleaned and he added a couple of sutures to insertion site and redressed. Continuing to ooze, made Dr. Durham aware. Per Dr. Durham, ordered PICC line placement. Has a midline to right arm and will swap out for a Picc line. Contacted PICC line nurse, Vera. Explained situation to lakesha [place] and he agreed with plan of care and gave consent. Once PICC line is in will remove TLC.
--- NOTE | 2019-08-10 16:58 | NUR ---
PICC line placement Patient significant other educated on need for PICC line placement. All risks and benefits explained and all questions and concerns addressed prior to procedure. Noted past medical history and allergies with no contraindications. INR and Plt counts within acceptable range. 5 fr PICC line inserted via right basilic vein using [employer] US and Tip Location System. Sterile technique with maximum barrier precautions utilized. Blood return obtained from each of the 3 lumens and each flushed easily with NS using proper technique. PICC secured with Stat-lock; biodisc and occlusive dressing applied. Stat portable chest x-ray obtained for PICC tip placement. *Baseline Arm Circumference 38 cm. Internal length 45 cm. External length 0. PICC lot #[id number]
[2019-08-10] MEDS ORDERED: LIDOCAINE 1% (LOCAL ANESTH.) PF 5ml SDV ID ONE (17:00)
--- NOTE | 2019-08-10 17:11 | NUR ---
Okay to use PICC line Xray completed and reviewed. Okay to use PICC line.
[2019-08-10] MEDS: fentaNYL Drip 2500mCg/250mlNS 250 ML IV SCH (18:06)
[2019-08-10 18:07] LABS: Hematocrit 32.1 % (36.0-46.0); Hemoglobin 10.8 g/dL (12.2-16.2); Mean Corpuscular Hemoglobin 29.4 pg (28.0-32.0); Mean Corpuscular Hgb Conc. 33.6 g/dL (32.0-36.0); Mean Corpuscular Volume 87.7 fL (80.0-100.0); Platelet Count (auto) 139 10^3/uL (140-450); Red Blood Cells 3.66 10^6/uL (4.0-5.20); Red Cell Distribution Width 14.3 % (11.8-14.3); White Blood Cell 19.8 10^3/uL (4.4-10.8)
[2019-08-10 18:19] LABS: Basophils % (manual) 0 (0.0-2.0); Blast Cells 0; Eosinophils % (manual) 0 (0-7); Metamyelocytes % 0; Myelocytes % 0; Promyelocytes % 0; Reactive Lymphocytes 0
--- NOTE | 2019-08-10 19:00 | NUR ---
ABG DONE. RESULTS CALLED TO DR KWAN. NEW VENTILATOR CHANGES. RATE 22, PRESSURE 23, PEEP OF 8.
--- NOTE | 2019-08-10 19:00 | NUR ---
FIO2 60%
--- NOTE | 2019-08-10 19:11 | NUR ---
Respiratory note: DR. KWAN NOTIFIED OF ABG RESULTS. NEW VENT ORDERS GIVEN, PC: RR 22, PIP 23, PEEP 8. REPEAT ABG IN 2 HOURS.
--- NOTE | 2019-08-10 20:00 | NUR ---
REPOSITIONED TO THE LEFT. PARALYZED WITH ATRACURIUM. MAX DOSING ON FENTANYL, VERSED, AND DIPRIVAN. PUPILL 3 AND SLUGGISH. ORAL CARE DONE. SUCTIONED ETT FOR NO SECRETIONS. LUNGS DIMINISHED AND CLEAR. ABDOMEN SOFT. NO BM. SIMPSON IN PLACE . SIMPSON DRAINING CLEAR YELLOW LIQUID. BUMEX. 2+ GENERALIZED PITTING EDEMA. PICC LINE NEW TODAY. NO REDNESS , SWELLING OR DRNG AT SITE. PENDING SPUTUM RESULTS FROM SEND OUT LABS. LEFT NECK: PREVIOUS CENTRAL LINE THAT BLED A LOT. LARGE DRESSING WITH FOAM TAPE OVER IT. POTASSIUM 3.4, REPLACED WITH 40 MEQ OF KCL TODAY. PREVENTATIVE OPTIFOAM ON COCCYX. NO BM. NSR WITHOUT ECTOPY. SBP STABLE.
[2019-08-10 20:10] LABS: Band Neutrophils % (manual) 7; Lymphocytes % (manual) 3 (10.0-50.0); Monocytes % (manual) 2 (0-12)
--- NOTE | 2019-08-10 20:14 | NUR ---
Okay to use PICC line, chest xray confirmation. Changed medications to line from left IJ TLC. Started Levophed gtt at 3mkg/min at 1718, noted drop in MAP 59-60 within 30 minutes. Only administered for 15 minutes. BP elevated 154/57, 166/52. MAP holding now. Removed left IJ TLC without incident at 1730, catheter intact. Held pressure for 15 minutes. No more bleeding from that site. At 1747, noted drop in pulse oximetry down to 80% and bucking ventilator, lips and face started to turn pale and no measurable VT, immediately shouted out for help and started bagging with a ambu bag. She responded within 20 seconds, skin color better and pulse oximetry up to 96%. Contacted Dr. Durham and updated in change of status. Per Dr. Durham restart paralytic and place back on am ventilators settings. Lila RT at bedside and informed her of Dr. Durham's orders. Report given to Ashley who will resume care of patient.
--- NOTE | 2019-08-10 20:30 | NUR ---
ABG DONE. NEW VENTILATOR CHANGES. RATE 18, PRESSURE 20, PEEP OF 8. ABG DUE IN ONE HOUR
--- NOTE | 2019-08-10 21:02 | NUR ---
Respiratory note: DR. KWAN NOTIFIED OF ABG RESULTS. NEW VENT ORDERS GIVEN AT THIS TIME, PC- RR 18, PIP 20, PEEP 8, 1.0 I-TIME. ABG TO FOLLOW IN ONE HOUR.
--- NOTE | 2019-08-10 22:00 | NUR ---
ABG WITHIN RANGE. FIO2 DECREASED TO 55%. NO CHANGE IN ATRACURIUM, VERSED, FENTANYL OR DIPRIVAN. LUNGS CLEAR. ORAL CARE DONE. REPOSITIONED TO BACK. SEDIMENT IN TUBING OF SIMPSON. ARMS AND LEGS PUFFY, PITTING EDEMA. CUFF ON RIGHT LOWER LEG. SCD ON LEFT LOWER LEG.
[2019-08-10] MEDS: ATORVASTATIN 20 MG TAB PO SCH (22:20)
[2019-08-10] MEDS: SODIUM CHLOR 0.9% PF (SALINE LOCK) 10ML VIAL/SYR IV SCH (22:21)
[2019-08-11] VITALS (105 sets, daily range): BP systolic 92–132; BP diastolic 39–61
--- NOTE | 2019-08-11 | NUR ---
NO NEW CHANGES. HR 60-70 WITH OUT ECTOPY.
[2019-08-11] MEDS: ALBUTEROL SULF 2.5 MG/0.5ML(0.5%) NEB SOLN NEB SCH ×8 (00:10→22:21)
[2019-08-11] MEDS: IPRATROPIUM BROM 0.5 MG/2.5ML INH SOL NEB SCH ×8 (00:10→22:21)
[2019-08-11] MEDS: ACETYLCYSTEINE 20%(200MG/ML) SOL 4ML NEB SCH ×4 (00:11→22:21)
[2019-08-11] MEDS: BUDESONIDE (INHALATION) 0.5 MG/2 ML NEB NEB SCH ×3 (00:11→18:17)
[2019-08-11] MEDS: methylPREDNISolone SOD SUCC 125 MG/2 ML VL IV SCH ×4 (00:18→19:03)
[2019-08-11] MEDS: MIDAZOLAM DRIP 50 mg/50mL 50 ML IV SCH ×6 (00:19→19:03)
[2019-08-11] MEDS: PROPOFOL 100 ML IV SCH ×7 (00:20→21:12)
[2019-08-11] MEDS: fentaNYL Drip 2500mCg/250mlNS 250 ML IV SCH (02:26)
--- NOTE | 2019-08-11 03:23 | NUR ---
AM LABS DRAWN
--- NOTE | 2019-08-11 04:00 | NUR ---
HAS HAD A STABLE NIGHT. HR OCCASIONALLY DROPS BELOW 60. NSR WITHOUT ECTOPY. LUNGS CLEAR AND DIMINISHED.
[2019-08-11 04:40] LABS: Basophils # (auto) 0 uL; Basophils % (auto) 0.1 % (0.0-2.0); Eosinophils # (auto) 0 uL; Lymphocytes # (auto) 0.4 uL; Monocytes # (auto) 0.8 uL; Monocytes % (auto) 4.5 % (0.0-12.0); Neutrophils # (auto) 17.1 uL; Neutrophils % (auto) 93.4 % (37.0-80.0); Nucleated Red Blood Cells % 0.1 %; Platelet Count (auto) 115 10^3/uL (140-450); Red Blood Cells 3.21 10^6/uL (4.0-5.20); Red Cell Distribution Width 14.2 % (11.8-14.3); White Blood Cell 18.4 10^3/uL (4.4-10.8)
[2019-08-11 04:45] LABS: Potassium 3.3 mmol/L (3.5-5.1)
[2019-08-11 04:50] LABS: Magnesium 2.2 mg/dL (1.6-2.6)
[2019-08-11 04:58] LABS: Hematocrit 28.6 % (36.0-46.0); Hemoglobin 9.6 g/dL (12.2-16.2)
[2019-08-11 04:59] LABS: Mean Corpuscular Hemoglobin 29.8 pg (28.0-32.0); Mean Corpuscular Hgb Conc. 33.6 g/dL (32.0-36.0); Mean Corpuscular Volume 88.7 fL (80.0-100.0)
[2019-08-11 05:09] LABS: Calcium 5.7 mg/dL (8.5-10.1)
[2019-08-11 05:15] LABS: BUN/Creatinine Ratio 35.2
--- NOTE | 2019-08-11 06:00 | NUR ---
HEART RATE HAS BEEN CONSISTENT 65-75 WITH NO ECTOPY. BP IS STABLE. RECTAL PROBE TEMP IS LOW. TAKING ORAL TEMPERATURES. LUNGS DIMINISHED ALL NIGHT. ABDOMEN SOFT. LACTULOSE GIVEN ON DAYS YESTERDAY, NO BM YET. PUFFY 2+ PITTING EDEMA THROUGHOUT BODY. NO SKIN ISSUES. STITCH IN RIGHT NECK WITH FOAM DRESSING COVERING IT. THAT STITCH WAS PLACED BY DR KWAN IN AN ATTEMPT TO CONTROL THE BLEEDING IN THE LEFT INTERNAL JUGULAR IV. THE LEFT LIJ TLC IS OUT. SEDIMENT IN SIMPSON LINE. PULSES ARE ALL WEAK. NEW PICC PLACED YESTERDAY, SITE SHOWS NO REDNESS OR SWELLING.
[2019-08-11] MEDS: METOCLOPRAMIDE HCL 5MG/ml INJ 2ml VIAL IV SCH ×3 (06:05→22:22)
[2019-08-11] MEDS: PIPERACILLIN-TAZOB 3.375GM 100 ML IV SCH ×3 (06:05→22:22)
[2019-08-11] MEDS: BUMETANIDE 2.5mg/10ml (0.25 mg/ml) INJ IV SCH ×3 (06:05→22:21)
--- NOTE | 2019-08-11 07:30 | NUR ---
REPORT REPORT RECEIVED [facility] RNCARMEN. BEDSIDE CHECK DONE.
--- NOTE | 2019-08-11 08:12 | NUR ---
SEE ASSESSMENT PT LAYING IN BED, SEDATED ON DIPRIVAN, VERSED AND FENTANYL AND PARALYZED ON ATRACURIUM AT 6 MCG. NO TWITCHES NOTED WITH TRAIN OF FOUR . DECREASED TRACRIUM TO 5 MCG. PT INTUBATED AND VENT SETTINGS OF 7.5 ETT/22 AT THE LIP, PC WITH RATE OF 18, PRESSURE OF 20 , 45% FIO2 AND PEEP OF 8. LUNGS CLEAR THROUGHOUT AND DIMINISHED AT THE BASES POSTERIOR. TELE SR. ABD SOFT WITH HYPOACTIVE BOWEL SOUNDS. OGT WITH + PLACEMENT NOTED AND WITH 5 ML RESIDUAL OF 5 ML CHOCOLATE GREEN TINGED FLUID. SIMPSON DRAINING YELLOW URINE WITH SEDIMENT. INCONTINENT OF SMALL AMOUNT OF LIQUID BROWN BM. DELMY CARE GIVEN AND PARTIAL LINEN CHANGE DONE REPOSITIONED FOR COMFORT.
--- NOTE | 2019-08-11 09:00 | NUR ---
SEDATION VACATION NO SEDATION VACATION PT IS ON A PARALYTIC Addendum: 08/11/19 at 1732 by Cristiane Hirsch RN Amended: Links added.
[2019-08-11] MEDS: NOREPINEPHRINE 8 MG/250ML KIT 250 ML IV SCH ×2 (09:16→18:45)
[2019-08-11] MEDS: LINEZOLID 600MG/300ML 300 ML IV SCH ×2 (09:17→20:18)
[2019-08-11] MEDS: ASPirin 81 mg TAB PO SCH ×2 (10:00→10:29)
[2019-08-11] MEDS: PANTOPRAZOLE 40 MG/10 ML VIAL INJ IV SCH (10:28)
[2019-08-11] MEDS: SODIUM CHLOR 0.9% PF (SALINE LOCK) 10ML VIAL/SYR IV SCH ×2 (10:29→22:22)
[2019-08-11] MEDS: ENOXAPARIN SOD 120 MG/0.8 ML SYRINGE SC SCH ×2 (10:29→22:00)
--- NOTE | 2019-08-11 12:53 | NUR ---
SEEN BY DR KWAN. WILL START TITRATING DOWN ON TRACRIUM BY 1 MCG/HR.
--- NOTE | 2019-08-11 13:46 | NUR ---
Nutrition Follow-up Notes Wt.: 114.9 kg today. Pt's room curtain's closed, RN at bedside during rounds this morning. Pt's s/p Bronchoscopy (08/09/19), remains intubated, currently sedated with Propofol @ 33.0 ml/hr, providing 871 kcal from Fat. Pt remains NPO, no order for alternate nutrition support yet at this time. Est. Needs based on AdBW 71 k-175 kcal (20-25 kcal/kgAdBW), 71-85 gms pro (1.0-1.2 gms/kgAdBW). Will continue to monitor pertinent labs and reassess nutrient need prn Labs: Gluc 319 H, Na 134 L, K 3.3 L, Cl 91 L, CO2 34 H, BUN 57 H, Cr 1.62 H, Ca 5.7 L; Trop I 0.508 H, Tpro 6.2 L, Alb 2.8 L Skin: Cyrus scale 18, mod risk, skin intact per sales merchandising specialist. GI: Pt's no bowel activity since 08/04/19 per sales merchandising specialist. PES: Increased nutrient needs r/t acute/chronic medical condition aeb sedated, intubated, mod hypoalbuminemia, NPO. Altered nutrition related lab values r/t current/chronic medical condition aeb hyperglyc, hyperchlor, hypocalc, hypoalb, Elev RFTs, Elev LFTs, Obesity r/t food intake more than body requirement aeb 191% IBW and BMI of 39.8 kg/m2 and increased body adiposity Will continue to monitor NPO status, skin status, pertinent labs and weight trend. F/u in 2 to 3 days. Rec.: 1.) If still NPO, consider alternate/EN support of Jevity 1.2 Jose Roberto @ 35 ml/hr goal rate as tolerated while on current Propofol rate. 2.) If Albumin continues trending down with improved renal labs, consider Prostat 1 pkt BID. 3.) Advance gradually to oral diet when medically appropriate. 4.) Refer pt to RD for further nutrition education and weight monitoring upon discharge. 5.) Continue current plan of care.
--- NOTE | 2019-08-11 14:55 | NUR ---
PT SEEN AND EXAMINED BY DR TALBOT. I UPDATED HIM ON THE PT'S CURREN CONDITION/
--- NOTE | 2019-08-11 15:55 | NUR ---
SPOKE WITH DR KWAN BY PHONE. MADE AWARE THAT PT ON 2 MCG OF TRACRIUM AND SO FAR IS TOLERATING WITHOUT ANY ILL EFFECTS. HE WANTS TO KEEP THE PT AT 2 MCG FOR 2 HOURS AND HE WILL COME BACK TO ASSESS
--- NOTE | 2019-08-11 18:18 | NUR ---
Respiratory note: RECEIVED PT ON VENT V4 VENT CONNECTED TO RED OUTLET AND O2 SOURCE. ALARMS ARE SET AND AUDIBLE. AMBU BAG AND MASK AT BEDSIDE. BS ARE FINE WHEEZES IN URL, DIMINISHED T/O. MED NEB TX GIVEN INLINE WITHOUT ADVERSE REACTION NOTED. RT NAME AND PAGER ASSIGNMENT WRITTEN ON PTS ROOM BOARD. PTS FAMILY AT BEDSIDE. WILL CONTINUE TO MONITOR Q2H CHECKS.
--- NOTE | 2019-08-11 19:00 | NUR ---
CALLED AND SPOKE WITH DR KWAN BY PHONE HE HAS NOT BEEN BACK. WANTS TO KEEP PT AT 2 MCG TONIGHT AND THEN DROP TO 1 MCG IN THE MORNING AT 0800/ IF PT DEVELOPS ANY RESPIRATORY DIFFICULTIES THEN MAY ADJUST UP ON THE TRACRIUM NEEDED.
[2019-08-11] MEDS: ATRACURIUM BESYLATE 1,000 MG in D5W 5% 150 ML IV SCH (19:09)
--- NOTE | 2019-08-11 19:45 | NUR ---
REPORT GIVEN TO NIGHT RNSMILEY. BEDSIDE CHECK DONE.
--- NOTE | 2019-08-11 20:00 | NUR ---
OPEN ASSUMED CARE OF FEMALE PT ORALLY INTUBATED. PT SEDATED ON DIPRIVAN GTT 50 MCG/KG/MIN, VERSED GTT 15 MG/HR, AND FENTANYL GTT AT 200 MCG/HR. PT ON TRACRIUM GTT AT 2 MCG/KG/MIN. T.O.F. ON MA 5 IS 4/4 TWITCHES. MD ORDER TO KEEP GTT AT 2 MCG/KG/MIN LONG PT TOLERATING VENTILATOR. PT NON RESPONSIVE ON VENT. SR ON SALES REPRESENTATIVE [employer] WITH OCCASIONAL PAC'S. OGT IN PLACE CLAMPED. PLACEMENT VERIFIED. R. UPPER ARM PICC LINE IN PLACE. ALL PORTS PATENT. DRESSING CDI. SIMPSON TO GRAVITY DRAINING YELLOW URINE WITH SEDIMENT. SCD IN PLACE TO L. LEG AND BP CUFF IN PLACE TO R. LEG. BED IN LOWEST LOCKED POSITION. SIDE RAILS UP X 3. HOB ELEVATED 40 DEGREES. NO INDICATION OF PAIN OBSERVED. PT TOLERATING VENTILATOR. OPTIFOAM GENTLE SACRAL DRESSING IN PLACE PREVENTATIVE. PT IN FULL VIEW OF RN STATION. WILL CONTINUE TO MONITOR.
--- NOTE | 2019-08-11 20:05 | NUR ---
Respiratory note: AT BEDSIDE FOR ROUTINE VENT CHECK, BS ARE FINE COURSE, SXD SCANT CLEAR/PERAZA, NO VENT CHANGES MADE. WILL CONTINUE TO MONITOR.
--- NOTE | 2019-08-11 21:00 | NUR ---
DR KWAN ON UNIT. PM LOVENOX DOSE TO BE HELD. DR KWAN ON UNIT TO EVALUATE PT. UPDATED MD REGARDING PT OOZING BLOOD FROM ALL PREVIOUS PERIPHERAL IV SITES. PT CURRENTLY ON LOVENOX 110 MG BID. ORDER TO HOLD THIS EVENINGS DOSE.
--- NOTE | 2019-08-11 22:21 | NUR ---
Respiratory note: AT BEDSIDE FOR ROUTINE VENT CHECK, BS ARE FINE COURSE WHEEZES T/O BILATERAL UPPER LOBES , SXD SCANT PERAZA, MED NEB TX GIVEN INLINE WITHOUT ADVERSE REACTION NOTED. NO VENT CHANGES MADE AT THIS TIME. WILL CONTINUE TO MONITOR.
[2019-08-11] MEDS: ATORVASTATIN 20 MG TAB PO SCH (22:22)
--- NOTE | 2019-08-11 23:30 | NUR ---
FAMILY CALL PT SON JESI CALLED UNIT FOR UPDATE ON PT CONDITION. AFTER PASSWORD FOR PHONE GIVEN. UPDATE PROVIDED. ALL QUESTIONS AND CONCERNS ADDRESSED.
[2019-08-12] VITALS (107 sets, daily range): BP systolic 88–135; BP diastolic 40–65
--- NOTE | 2019-08-12 00:02 | NUR ---
Respiratory note: AT BEDSIDE FOR ROUTINE VENT CHECK, NO VENT CHANGES MADE. WILL CONTINUE TO MONITOR.
[2019-08-12] MEDS: methylPREDNISolone SOD SUCC 125 MG/2 ML VL IV SCH ×5 (00:04→23:44)
[2019-08-12] MEDS: MIDAZOLAM DRIP 50 mg/50mL 50 ML IV SCH ×5 (00:04→21:30)
[2019-08-12] MEDS: PROPOFOL 100 ML IV SCH ×8 (00:04→23:45)
[2019-08-12] MEDS: ALBUTEROL SULF 2.5 MG/0.5ML(0.5%) NEB SOLN NEB SCH ×6 (02:23→22:16)
[2019-08-12] MEDS: IPRATROPIUM BROM 0.5 MG/2.5ML INH SOL NEB SCH ×6 (02:23→22:16)
--- NOTE | 2019-08-12 02:23 | NUR ---
Respiratory note: AT BEDSIDE FOR ROUTINE VENT CHECK,BS ARE FINE COURSE SXD SCANT CLEAR/PERAZA, MED NEB TX GIVEN INLINE WITHOUT ADVERSE REACTION NOTED. NO VENT CHANGES MADE. WILL CONTINUE TO MONITOR.
[2019-08-12] MEDS ORDERED: DEXTROSE (50%) 50ML SYRG IV PRN (02:45)
[2019-08-12 03:51] LABS: Hematocrit 27.6 % (36.0-46.0); Hemoglobin 9.4 g/dL (12.2-16.2); Mean Corpuscular Hemoglobin 29.8 pg (28.0-32.0); Mean Corpuscular Hgb Conc. 34.1 g/dL (32.0-36.0); Mean Corpuscular Volume 87.4 fL (80.0-100.0); Platelet Count (auto) 108 10^3/uL (140-450); Red Blood Cells 3.16 10^6/uL (4.0-5.20); Red Cell Distribution Width 14.2 % (11.8-14.3); White Blood Cell 25.6 10^3/uL (4.4-10.8)
[2019-08-12 04:11] LABS: BUN/Creatinine Ratio 38.8; Calcium 6.2 mg/dL (8.5-10.1); Magnesium 2.4 mg/dL (1.6-2.6); Potassium 3.3 mmol/L (3.5-5.1)
[2019-08-12 04:16] LABS: Basophils % (manual) 0 (0.0-2.0); Blast Cells 0; Eosinophils % (manual) 0 (0-7); Lymphocytes % (manual) 0 (10.0-50.0); Metamyelocytes % 0; Myelocytes % 0; Promyelocytes % 0; Reactive Lymphocytes 0
--- NOTE | 2019-08-12 04:28 | NUR ---
Respiratory note: END OF SHIFT VENT CHECK. NO CHANGES MADE AT THIS TIME. WILL HAVE DAY SHIFT CONTINUE POC.
[2019-08-12 04:31] LABS: Band Neutrophils % (manual) 4; Monocytes % (manual) 2 (0-12)
--- NOTE | 2019-08-12 04:37 | NUR ---
Patient bathe/linen change Patient given complete bath. Skin integrity assessed for any changes. Linens changed. Patient repositioned for comfort.
--- NOTE | 2019-08-12 05:50 | NUR ---
FAMILY CALL PT VALERIA MATAMOROS CALLED UNIT FOR UPDATE. AFTER PASSWORD FOR PHONE GIVEN UPDATE PROVIDED. ALL QUESTIONS AND CONCERNS ADDRESSED.
[2019-08-12] MEDS: BUDESONIDE (INHALATION) 0.5 MG/2 ML NEB NEB SCH ×2 (05:54→18:11)
[2019-08-12] MEDS: ACETYLCYSTEINE 20%(200MG/ML) SOL 4ML NEB SCH ×3 (06:02→22:16)
[2019-08-12] MEDS: PIPERACILLIN-TAZOB 3.375GM 100 ML IV SCH ×3 (06:16→21:29)
[2019-08-12] MEDS: BUMETANIDE 2.5mg/10ml (0.25 mg/ml) INJ IV SCH ×3 (06:17→21:28)
[2019-08-12] MEDS: METOCLOPRAMIDE HCL 5MG/ml INJ 2ml VIAL IV SCH ×3 (06:17→21:29)
[2019-08-12] MEDS: ACCU-CHEK COMFORT CURVE STRIP VI SCH ×4 (06:17→23:45)
[2019-08-12] MEDS: InsuLIN REG 1unit/0.01ml Soln (100units/ml) SC SCH ×4 (06:18→23:45)
--- NOTE | 2019-08-12 07:30 | NUR ---
AM ASSESSMENT DONE. PT ON A PARALYTIC AT 2 MCG/KG /MIN 4 TWITCHES RECEIVED, THE GOAL OF PARALYTIC IS SO PT CAN TOLERATE VENTILATOR, SHE IS SLOWLY BEING WEANED OFF IT, PER DR. KWAN ORDERS. PT WILL BE DECREASED TO 1 MCG/KG MIN AT 0800. PT DEEPLY SEDATED ON PROPOFOL, VERSED, AND FENTANYL, REFER TO ICU GTT FLOW SHEET. PT HAS ISSUES WITH BLEEDING THROUGH PREVIOUS VENIPUNCTURE SITES, ETT. ALL GTT'S VERIFIED, ALL ALARMS VERIFIED, REPOSITIONED FOR COMFORT.
[2019-08-12] MEDS: LINEZOLID 600MG/300ML 300 ML IV SCH ×2 (08:02→20:18)
[2019-08-12] MEDS: POTASSIUM CHL 20MEQ/100ML 100 ML IV SCH ×4 (09:01→21:28)
--- NOTE | 2019-08-12 09:15 | NUR ---
WOUND CARE DRESSING CHANGED TO LT NECK. APPLIED SURGICELL USING A STERILE TECHNIQUE, 4X4 AND SECURED WITH TEGADERM DRESSING ON TOP.
[2019-08-12] MEDS: PANTOPRAZOLE 40 MG/10 ML VIAL INJ IV SCH (09:59)
[2019-08-12] MEDS: SODIUM CHLOR 0.9% PF (SALINE LOCK) 10ML VIAL/SYR IV SCH ×2 (10:00→21:29)
[2019-08-12] MEDS: ASPirin 81 mg TAB PO SCH (10:00)
[2019-08-12] MEDS: ENOXAPARIN SOD 30 MG/0.3 ML SYRINGE SC SCH (10:00)
--- NOTE | 2019-08-12 12:18 | NUR ---
WOUND CARE NOTE: Wound care in to see patient for skin integrity monitoring. Patient continue resting on ICU bed in Rm. 101. Patent is still intubated, sedated and mechanically ventilated. Patient appears to be in no pain using So Parker Fcaes Pain Scale/ Her current Cyrus score is 10. Skin assessment done with the assistance of patient's nurse, ADRIAN Boucher. No open wound noted other than L anterior upper thigh, dry, resolving blister, are is clean and dry, left open to air. Patient passed small amount of pasty stool, ramin care given, placed new care pad . No pressure injury noted. Applied Barrier cream to sacral, buttocks as preventative. Repositioned patient for comfort facing her Rt. side, redistributed pressure points with wedges and pillows. Patient tolerated well. ADRIAN Boucher and patient's family at bedside. RECOMMENDATION: Continuation of all wound care orders prescribed by MD, continue with skin/wound plan of care, continue monitoring by wound care while patient is hospitalized. Addendum: 08/12/19 at 1538 by Ifrah Devine RN Amended: Links added.
[2019-08-12] MEDS: fentaNYL Drip 2500mCg/250mlNS 250 ML IV SCH (15:40)
--- NOTE | 2019-08-12 17:00 | NUR ---
DR. KWAN ROUNDED ON PT EARLIER, HE STATES, NO PLAN ON CPAP YET , PT STILL HAS A LOT OF NECK SWELLING AND STILL REQUIRING 55% FIO2.
--- NOTE | 2019-08-12 19:15 | NUR ---
OPENING SHIFT RECEIVED REPORT FROM DAY SHIFT RN. ASSUMED CARE OF PATIENT. PATIENT IN BED INTUBATED - SIZE 7.5 / 22 AT THE LIP, AND SEDATED - VERSED 15MG/HR, FENTANYL - 200MCG/HR, PROPOFOL - 5OMCG/KG/MIN, TRACRIUM - 1MCG/KG/MIN. TRAIN OF 4 PERFORMED, 4AMPS 4/4 TICKS. RIGHT UPPER ARM PICC TLC - CLEAN/DRY/INTACT. SIMPSON HUNG TO GRAVITY. REPOSITIONED FOR COMFORT. BED IN LOWEST POSITION, SIDE RAILS UP X2. WILL CONTINUE TO MONITOR.
--- NOTE | 2019-08-12 19:15 | NUR ---
DR. TALBOT SPOKE WITH DR. TALBOT OVER THE PHONE, MADE AWARE OF POTASSIUM -3.2. RECEIVED ORDERS FOR 40 MEQ K RIDER. NOTED AND CARRIED OUT, WILL CONTINUE TO MONITOR. Addendum: 08/12/19 at 2308 by ANA COSTELLO RN RN *CORRECT TIME 1943
--- NOTE | 2019-08-12 19:33 | NUR ---
LEFT A MESSAGE TO DR. HARRIS PT'S K = 3.2 PT IS GOING TO RECEIVE BUMEX TONIGHT.
[2019-08-12] MEDS: NOREPINEPHRINE 8 MG/250ML KIT 250 ML IV SCH (19:51)
[2019-08-12] MEDS: ATRACURIUM BESYLATE 1,000 MG in D5W 5% 150 ML IV SCH (20:11)
[2019-08-12] MEDS: ATORVASTATIN 20 MG TAB PO SCH (21:28)
[2019-08-13] VITALS (103 sets, daily range): BP systolic 104–154; BP diastolic 50–75
[2019-08-13] MEDS: MIDAZOLAM DRIP 50 mg/50mL 50 ML IV SCH ×5 (00:43→17:56)
[2019-08-13] MEDS: IPRATROPIUM BROM 0.5 MG/2.5ML INH SOL NEB SCH ×6 (02:20→22:03)
[2019-08-13] MEDS: ALBUTEROL SULF 2.5 MG/0.5ML(0.5%) NEB SOLN NEB SCH ×6 (02:20→22:02)
--- NOTE | 2019-08-13 03:12 | NUR ---
MORNING CARE PERFORMED MORNING CARE WITH CHG WIPES AND WASH CLOTHS TO THE FACE. FULL LINEN CHANGE AND GOWN CHANGED. ORAL AND SIMPSON CARE PERFORMED. REPOSITIONED FOR COMFORT. SKIN REASSESSED AT THIS TIME. BED IN LOWEST POSITION, SIDE RAILS UP X2. WILL CONTINUE TO MONITOR.
[2019-08-13 04:27] LABS: Hemoglobin 8.6 g/dL (12.2-16.2); Mean Corpuscular Hgb Conc. 34.5 g/dL (32.0-36.0); Mean Corpuscular Volume 86.8 fL (80.0-100.0); Platelet Count (auto) 102 10^3/uL (140-450); Red Blood Cells 2.88 10^6/uL (4.0-5.20); Red Cell Distribution Width 14.1 % (11.8-14.3); White Blood Cell 25.1 10^3/uL (4.4-10.8)
[2019-08-13 04:40] LABS: Basophils % (manual) 0 (0.0-2.0); Blast Cells 0; Eosinophils % (manual) 0 (0-7); Lymphocytes % (manual) 0 (10.0-50.0); Metamyelocytes % 0; Myelocytes % 0; Promyelocytes % 0; Reactive Lymphocytes 0
[2019-08-13 04:45] LABS: BUN/Creatinine Ratio 42.4; Calcium 6.2 mg/dL (8.5-10.1); Magnesium 2.6 mg/dL (1.6-2.6); Potassium 3.3 mmol/L (3.5-5.1)
--- NOTE | 2019-08-13 05:17 | NUR ---
FAMILY UPDATED SPOKE WITH FAMILY OVER THE PHONE, PASSWORD VERIFIED. UPDATED ON PATIENT STATUS AND PLAN OF CARE.
[2019-08-13 05:23] LABS: Band Neutrophils % (manual) 4; Monocytes % (manual) 3 (0-12)
[2019-08-13] MEDS: BUMETANIDE 2.5mg/10ml (0.25 mg/ml) INJ IV SCH ×3 (05:51→22:14)
[2019-08-13] MEDS: METOCLOPRAMIDE HCL 5MG/ml INJ 2ml VIAL IV SCH ×3 (05:51→22:14)
[2019-08-13] MEDS: methylPREDNISolone SOD SUCC 125 MG/2 ML VL IV SCH ×3 (05:51→18:30)
[2019-08-13] MEDS: ACCU-CHEK COMFORT CURVE STRIP VI SCH ×4 (05:52→23:59)
[2019-08-13] MEDS: PIPERACILLIN-TAZOB 3.375GM 100 ML IV SCH ×3 (05:52→22:15)
[2019-08-13] MEDS: InsuLIN REG 1unit/0.01ml Soln (100units/ml) SC SCH ×4 (05:53→23:59)
[2019-08-13] MEDS: ACETYLCYSTEINE 20%(200MG/ML) SOL 4ML NEB SCH ×3 (05:58→22:04)
[2019-08-13] MEDS: BUDESONIDE (INHALATION) 0.5 MG/2 ML NEB NEB SCH ×2 (05:59→19:00)
--- NOTE | 2019-08-13 06:20 | NUR ---
PAGED LEFT VOICEMAIL REGARDING POTASSIUM - 3.3. AWAITING CALL BACK.
[2019-08-13] MEDS: fentaNYL Drip 2500mCg/250mlNS 250 ML IV SCH ×2 (06:25→17:45)
[2019-08-13] MEDS: PROPOFOL 100 ML IV SCH ×6 (06:26→22:17)
--- NOTE | 2019-08-13 07:18 | NUR ---
END OF SHIFT REPORT GIVEN TO DAY SHIFT RN. CARE ENDORSED.
[2019-08-13] MEDS: LINEZOLID 600MG/300ML 300 ML IV SCH ×2 (07:56→20:11)
[2019-08-13] MEDS: POTASSIUM CHL 20MEQ/100ML 100 ML IV SCH ×4 (08:21→23:42)
--- NOTE | 2019-08-13 09:40 | NUR ---
DR. KWAN ROUNDJESSIKA, ABG AND CXR RESULTS REVIEWED, PT NOW ON 65% FIO2. NO PLANS FOR CPAP. PT REMAIN ON PARALYTIC AT 1 MCG/KG/MIN 4 TWITCHES OUT OF 4. STILL ON DEEP SEDATION. BLEEDING MORE UNDER CONTROL ESPECIALLY UNDER LT NECK FROM PREVIOUS CENTRAL LINE.
[2019-08-13] MEDS: PANTOPRAZOLE 40 MG/10 ML VIAL INJ IV SCH (10:17)
[2019-08-13] MEDS: SODIUM CHLOR 0.9% PF (SALINE LOCK) 10ML VIAL/SYR IV SCH ×2 (10:18→22:15)
[2019-08-13] MEDS: ASPirin 81 mg TAB PO SCH (10:18)
[2019-08-13] MEDS: ENOXAPARIN SOD 30 MG/0.3 ML SYRINGE SC SCH (10:18)
--- NOTE | 2019-08-13 11:35 | NUR ---
DR. TALBOT ROUNDING. HE UPDATED PT'S FAMILY ON PT'S CONDITION . ALL QUESTIONS ANSWERED. MD MICHEL WITH PT BEING ON LOVENOX AT 30 MG SUBCUTANEOUSLY DAILY FOR DVT PROPHYLAXIS.
--- NOTE | 2019-08-13 12:21 | NUR ---
Nutrition Follow-up Notes Wt.: 112.9 kg today. Pt remains intubated, no immediate family member at bedside when rounded this morning. Pt's currently sedated with Propofol @ 35.38 ml/hr providing 934 kcal from Fat and remains NPO, no order for alternate nutrition support yet at this time, per nursing Est. Needs based on AdBW 71 [id number] kcal (20-25 kcal/kgAdBW), 71-85 gms pro (1.0-1.2 gms/kgAdBW). Will continue to monitor pertinent labs and reassess nutrient need prn Labs: Gluc 256 H, K 3.3 L, Cl 97 L, CO2 33 H, BUN 70 H, Cr 1.65 H, Ca 6.2 L; Trop I 0.508 H, Tpro 6.2 L, Alb 2.8 L Skin: Cyrus scale 10, high risk, pt's left anterior upper thigh dry resolving blister per facilities maintenance manager. Pls refer to latest stave mill hand's notes for further details re: tx plans. GI: Pt had 1 BM this morning per facilities maintenance manager. PES: Increased nutrient needs r/t acute/chronic medical condition aeb sedated, intubated, mod hypoalbuminemia, NPO. Altered nutrition related lab values r/t current/chronic medical condition aeb hyperglyc, hyperchlor, hypocalc, hypoalb, Elev RFTs, Elev LFTs, Obesity r/t food intake more than body requirement aeb 191% IBW and BMI of 39.8 kg/m2 and increased body adiposity Will continue to monitor NPO status, skin status, pertinent labs and weight trend. F/u in 2 to 3 days. Rec.: 1.) If still NPO, consider alternate/EN support with formula choice of Jevity 1.2 Jose Roberto @ 35 ml/hr goal rate as tolerated while on current Propofol rate if medically appropriate. 2.) If Albumin continues trending down with improved renal labs, consider Prostat 1 pkt BID. 3.) Consider daily MVI with minerals and Asc acid 500 mgs BID prn. 4.) Advance gradually to oral diet when medically appropriate. 5.) Refer pt to RD for further nutrition education and weight monitoring upon discharge. 6.) Continue current plan of care.
[2019-08-13] MEDS: NOREPINEPHRINE 8 MG/250ML KIT 250 ML IV SCH (18:45)
--- NOTE | 2019-08-13 19:30 | NUR ---
Opening Shift Note Received pt on mechanical ventilator sedated on propofol, versed, and fentanyl maxed; SEE IV SPREADHSEET. Pt also on atracurium at 1 mcg. TOF performed 5 amps 4/4 ticks. Full assessment done see interventions. OGT clamped. Dick catheter draining to gravity, secured below bladder free of kinks. Pt in full view of RN. All alarms on and audible. Will continue to monitor closely.
--- NOTE | 2019-08-13 19:39 | NUR ---
Left message for DR. TALBOT regarding potassium level. Awaiting call back.
--- NOTE | 2019-08-13 20:59 | NUR ---
Second message left for DR. TALBOT. Awaiting call back.
--- NOTE | 2019-08-13 21:09 | NUR ---
MD RETURNED CALL SPOKE WITH DR. TALBOT OVER THE PHONE, MADE AWARE OF POTASSIUM -3.2. RECEIVED ORDERS FOR 40 MEQ K RIDER. NOTED AND CARRIED OUT, WILL CONTINUE TO MONITOR.
[2019-08-13] MEDS: ATORVASTATIN 20 MG TAB PO SCH (22:15)
[2019-08-14] VITALS (104 sets, daily range): BP systolic 114–167; BP diastolic 55–80
[2019-08-14] MEDS: ALBUTEROL SULF 2.5 MG/0.5ML(0.5%) NEB SOLN NEB SCH ×6 (02:18→22:01)
[2019-08-14] MEDS: IPRATROPIUM BROM 0.5 MG/2.5ML INH SOL NEB SCH ×6 (02:18→22:01)
[2019-08-14] MEDS: MIDAZOLAM DRIP 50 mg/50mL 50 ML IV SCH ×4 (03:10→15:10)
[2019-08-14] MEDS: PROPOFOL 100 ML IV SCH ×6 (03:10→18:25)
[2019-08-14 04:01] LABS: Hematocrit 27.9 % (36.0-46.0); Hemoglobin 9.4 g/dL (12.2-16.2); Mean Corpuscular Hemoglobin 29.9 pg (28.0-32.0); Mean Corpuscular Hgb Conc. 33.8 g/dL (32.0-36.0); Mean Corpuscular Volume 88.3 fL (80.0-100.0); Platelet Count (auto) 101 10^3/uL (140-450); Red Blood Cells 3.16 10^6/uL (4.0-5.20); Red Cell Distribution Width 14.3 % (11.8-14.3)
[2019-08-14 04:19] LABS: Potassium 3.7 mmol/L (3.5-5.1)
[2019-08-14 04:22] LABS: Basophils % (manual) 0 (0.0-2.0); Blast Cells 0; Eosinophils % (manual) 0 (0-7); Metamyelocytes % 0; Myelocytes % 0; Promyelocytes % 0; Reactive Lymphocytes 0
[2019-08-14 04:30] LABS: BUN/Creatinine Ratio 19.4; Calcium 6.3 mg/dL (8.5-10.1); Magnesium 2.8 mg/dL (1.6-2.6)
[2019-08-14 05:33] LABS: Band Neutrophils % (manual) 4; Lymphocytes % (manual) 1 (10.0-50.0); Monocytes % (manual) 3 (0-12)
--- NOTE | 2019-08-14 06:00 | NUR ---
Elimination pt had a large green liquid BM. Pt cleansed and linen change performed.
[2019-08-14] MEDS: BUDESONIDE (INHALATION) 0.5 MG/2 ML NEB NEB SCH ×2 (06:04→17:53)
[2019-08-14] MEDS: ACETYLCYSTEINE 20%(200MG/ML) SOL 4ML NEB SCH ×3 (06:04→22:01)
[2019-08-14] MEDS: PIPERACILLIN-TAZOB 3.375GM 100 ML IV SCH (06:20)
[2019-08-14] MEDS: METOCLOPRAMIDE HCL 5MG/ml INJ 2ml VIAL IV SCH ×3 (06:20→22:06)
[2019-08-14] MEDS: methylPREDNISolone SOD SUCC 125 MG/2 ML VL IV SCH ×2 (06:20)
[2019-08-14] MEDS: BUMETANIDE 2.5mg/10ml (0.25 mg/ml) INJ IV SCH ×3 (06:20→22:06)
[2019-08-14] MEDS: ACCU-CHEK COMFORT CURVE STRIP VI SCH ×3 (06:21→18:12)
[2019-08-14] MEDS: InsuLIN REG 1unit/0.01ml Soln (100units/ml) SC SCH ×3 (06:21→18:13)
--- NOTE | 2019-08-14 10:00 | NUR ---
PARALYTIC STOPPED AT THIS TIME PER DR. SILVA'S ORDER, WILL CLOSELY MONITOR PT.
[2019-08-14] MEDS: methylPREDNISolone SOD SUCC 40 MG/ML VL IV SCH ×2 (10:15→22:05)
[2019-08-14] MEDS ORDERED: methylPREDNISolone SOD SUCC 40 MG/ML VL IV ONE (10:15)
[2019-08-14] MEDS: DOXYCYCLINE 100MG/250ML 250 ML IV SCH ×2 (10:17→20:04)
[2019-08-14] MEDS: ENOXAPARIN SOD 30 MG/0.3 ML SYRINGE SC SCH (10:19)
[2019-08-14] MEDS: SODIUM CHLOR 0.9% PF (SALINE LOCK) 10ML VIAL/SYR IV SCH ×2 (10:19→22:06)
[2019-08-14] MEDS: ASPirin 81 mg TAB PO SCH (10:19)
[2019-08-14] MEDS: PANTOPRAZOLE 40 MG/10 ML VIAL INJ IV SCH (10:19)
[2019-08-14] MEDS: POTASSIUM CHL 20MEQ/100ML 100 ML IV SCH ×2 (10:20→11:52)
[2019-08-14] MEDS ORDERED: HEPARIN 1,000 UNITS/ml 1ML VIAL ONE (13:02)
[2019-08-14] MEDS: fentaNYL Drip 2500mCg/250mlNS 250 ML IV SCH (15:10)
--- NOTE | 2019-08-14 17:53 | NUR ---
Respiratory note: RECEIVED PT ON VENT V4, VENT CONNECTED TO RED OUTLET AND O2 SOURCE ALARMS ARE SET AND AUDIBLE. AMBU BAG AND MASK AT BEDSIDE. BS ARE FINE COURSE SXD FOR SCANT CLEAR. . MED NEB TX GIVEN INLINE WITHOUT ADVERSE REACTION NOTED. RT NAME AND PAGER ASSIGNMENT WRITTEN ON PTS ROOM BOARD. WILL CONTINUE TO MONITOR Q2H AND MORE NEEDED.
--- NOTE | 2019-08-14 18:39 | NUR ---
LEFT A MESSAGE ON DR. SILVA CELL PHONE TO CALL BACK REGARDING PT'S CO2 INCREASING FROM THE 30'S RANGE TO NOW 57 FROM COMING OFF THE PARALYTIC THIS AM. AWAITING FOR TO CALL BACK.
[2019-08-14] MEDS: NOREPINEPHRINE 8 MG/250ML KIT 250 ML IV SCH (18:45)
--- NOTE | 2019-08-14 19:30 | NUR ---
REPORT GIVEN TO MECHANICAL ARTIST, ENDORSED TO FOLLOW UP WITH DR. SILVA REGARDING HIGH CO2 THAT IS STEADILY GOING HIGHER.
--- NOTE | 2019-08-14 19:30 | NUR ---
Opening Shift Note Received pt on mechanical ventilator sedated on propofol, versed, and fentanyl maxed; SEE IV SPREADHSEET. Full assessment done see interventions. OGT clamped. Dick catheter draining to gravity, secured below bladder free of kinks. Pt in full view of RN. All alarms on and audible. Will continue to monitor closely.
--- NOTE | 2019-08-14 19:55 | NUR ---
Respiratory note: AT BEDSIDE FOR ROUTINE VENT CHECK. SPOKE TO ADRIAN SHARP IF COMMUNICATION WAS MADE WITH DR SALOMON ABOUT PTS CO2 INCREASING NOW AT 55mmHg. DR HAS NOT BEEN REACHED YET AT NUMBER PROVIDED FROM ICU STAFF. WILL RE ATTEMPT TO COMMUNICATE TO DR WITH NOC ADRIAN SUN. COMMUNICATED TO ADRIAN SUN IF COR KEEPS INCREASING I WILL OBTAIN ORDERS FROM HOSPITALIST FOR NEW INTERVENTIONS. WILL CONTINUE TO MONITOR.
--- NOTE | 2019-08-14 20:30 | NUR ---
Paged Dr. Villarreal at this time. Awaiting call back.
--- NOTE | 2019-08-14 21:30 | NUR ---
Second Page out to Dr. Villarreal regarding pt's high CO2 level.
--- NOTE | 2019-08-14 21:45 | NUR ---
Respiratory note: SPOKE TO HIGH SCHOOL MUSIC DIRECTOR-GUDELIA SINCE WE ARE UNABLE TO REACH DR. SALOMON AT THIS TIME, DR RAMIREZ WAS NEXT TO HIM HIGH SCHOOL MUSIC DIRECTOR ASKED HIM IF HE CAN GIVE ORDERS TO DR. TALBOT PTS, DR MACIAS SAID NO. PT IS NOT A HOSPITALIST PT NO NEW ORDERS CAN BE OBTAINED AT THIS TIME. WILL COMMUNICATE PTS FINDING TO ER DOCTOR.
--- NOTE | 2019-08-14 21:58 | NUR ---
ABG ORDER OBTAINED FROM ER DOCTOR DR. Beatrice LARSEN.
--- NOTE | 2019-08-14 22:01 | NUR ---
Respiratory note: AT BEDSIDE FOR ROUTINE VENT CHECK. ABG OBTAINED AT THIS TIME. MED NEB TX GIVEN AFTER ABG, INLINE AND WITHOUT ADVERSE REACTION NOTED. ADRIAN SUN AT BEDSIDE WILL CONTINUE TO MONITOR.
[2019-08-14] MEDS: ATORVASTATIN 20 MG TAB PO SCH (22:06)
--- NOTE | 2019-08-14 22:22 | NUR ---
INCREASED RR VIA VENTILATOR FROM 16 TO 18. REPEAT ABG IN 1 HOUR.
--- NOTE | 2019-08-14 22:32 | NUR ---
Left message with DR. VIVAS'S answering services regarding pt's ABG. Will await call back
--- NOTE | 2019-08-14 23:56 | NUR ---
Respiratory note: AT BEDSIDE FOR ROUTINE VENT CHECK. SX CATHETER CHANGED AT THIS TIME. NO OTHER CHANGES MADE AT THIS TIME. ADRIAN SUN AT BEDSIDE WILL CONTINUE TO MONITOR.
[2019-08-15] VITALS (105 sets, daily range): BP systolic 100–134; BP diastolic 50–65
[2019-08-15] MEDS: ACCU-CHEK COMFORT CURVE STRIP VI SCH ×4 (00:01→17:38)
[2019-08-15] MEDS: InsuLIN REG 1unit/0.01ml Soln (100units/ml) SC SCH ×4 (00:01→17:38)
[2019-08-15] MEDS: MIDAZOLAM DRIP 50 mg/50mL 50 ML IV SCH ×5 (02:00→22:10)
[2019-08-15] MEDS: IPRATROPIUM BROM 0.5 MG/2.5ML INH SOL NEB SCH ×6 (02:17→21:59)
[2019-08-15] MEDS: ALBUTEROL SULF 2.5 MG/0.5ML(0.5%) NEB SOLN NEB SCH ×6 (02:17→21:59)
--- NOTE | 2019-08-15 02:17 | NUR ---
Respiratory note: AT BEDSIDE FOR ROUTINE VENT CHECK.MED NEB TX GIVEN INLINE WITHOUT ADVERSE REACTION NOTED. ADRIAN SUN AT BEDSIDE WILL CONTINUE TO MONITOR.
--- NOTE | 2019-08-15 04:11 | NUR ---
Respiratory note: END OF SHIFT VENT CHECK, NO VENT CHANGES MADE AT THIS TIME. WILL HAVE DAY SHIFT RT CONTINUE POC.
[2019-08-15 04:28] LABS: Hemoglobin 8.2 g/dL (12.2-16.2); Mean Corpuscular Hemoglobin 30.1 pg (28.0-32.0); Mean Corpuscular Volume 88.6 fL (80.0-100.0); Platelet Count (auto) 101 10^3/uL (140-450); Red Blood Cells 2.71 10^6/uL (4.0-5.20); Red Cell Distribution Width 14.2 % (11.8-14.3)
[2019-08-15 04:31] LABS: Basophils % (manual) 0 (0.0-2.0); Blast Cells 0; Eosinophils % (manual) 0 (0-7); Lymphocytes % (manual) 0 (10.0-50.0); Metamyelocytes % 0; Myelocytes % 0; Promyelocytes % 0; Reactive Lymphocytes 0
--- NOTE | 2019-08-15 04:40 | NUR ---
ELIMINATION Pt had large dark green liquid BM. Cleansed pt and full linen change provided. Pt tolerated well.
[2019-08-15 04:48] LABS: BUN/Creatinine Ratio 45.5; Calcium 6.5 mg/dL (8.5-10.1); Magnesium 2.7 mg/dL (1.6-2.6); Potassium 4.1 mmol/L (3.5-5.1)
[2019-08-15] MEDS: METOCLOPRAMIDE HCL 5MG/ml INJ 2ml VIAL IV SCH ×3 (06:00→22:00)
[2019-08-15] MEDS: BUMETANIDE 2.5mg/10ml (0.25 mg/ml) INJ IV SCH (06:03)
[2019-08-15 06:24] LABS: Band Neutrophils % (manual) 2; Monocytes % (manual) 5 (0-12)
[2019-08-15] MEDS: PROPOFOL 100 ML IV SCH ×7 (06:30→22:09)
--- NOTE | 2019-08-15 06:30 | NUR ---
ELIMINATION PT HAD LIQUID BM. PARTIAL LINEN CHANGE. DELMY CARE DONE.
[2019-08-15] MEDS: fentaNYL Drip 2500mCg/250mlNS 250 ML IV SCH ×2 (06:36→18:00)
[2019-08-15] MEDS: ACETYLCYSTEINE 20%(200MG/ML) SOL 4ML NEB SCH ×3 (06:45→22:00)
[2019-08-15] MEDS: BUDESONIDE (INHALATION) 0.5 MG/2 ML NEB NEB SCH ×2 (06:46→18:19)
--- NOTE | 2019-08-15 07:13 | NUR ---
End of Shift Note Report given to day shift RN.
--- NOTE | 2019-08-15 07:40 | NUR ---
DR. VIVAS AT BEDSIDE
[2019-08-15] MEDS: PANTOPRAZOLE 40 MG/10 ML VIAL INJ IV SCH (09:18)
[2019-08-15] MEDS: DOXYCYCLINE 100MG/250ML 250 ML IV SCH ×2 (09:18→19:57)
[2019-08-15] MEDS: ENOXAPARIN SOD 30 MG/0.3 ML SYRINGE SC SCH (09:18)
[2019-08-15] MEDS: ASPirin 81 mg TAB PO SCH (09:18)
[2019-08-15] MEDS: QUEtiapine FUMARATE 25 MG TAB PO SCH ×2 (09:18→22:19)
[2019-08-15] MEDS: methylPREDNISolone SOD SUCC 40 MG/ML VL IV SCH ×2 (09:19→22:19)
[2019-08-15] MEDS: SODIUM CHLOR 0.9% PF (SALINE LOCK) 10ML VIAL/SYR IV SCH ×2 (09:19→22:19)
--- NOTE | 2019-08-15 09:41 | NUR ---
DR. TALBOT AT BEDSIDE
[2019-08-15] MEDS: BUMETANIDE INJECTION 25 MG in GIVE UN-DILUTED 0 ML IV SCH (10:29)
--- NOTE | 2019-08-15 11:59 | NUR ---
PATIENT HAD SMALL BROWN BOWEL MOVEMENT. PARTIAL LINEN CHANGE PERFORMED AT THIS TIME
--- NOTE | 2019-08-15 15:00 | NUR ---
Respiratory note: WITH RT INGRIS AT BEDSIDE. SWITCHED PT TO IntellioAPE VENTILATOR V18, PLUGGED INTO RED OUTLET AND PROPER O2/AIR SOURCES, WITH HEATED WIRE CIRCUIT, HEATER TEMPERATURE SET TO 35C. PT BACK ON PREVIOUSLY ORDERED SETTINGS. NO ADVERSE REACTIONS NOTED, CHANGE WENT WITHOUT INCIDENT. ADRIAN DAHL MADE AWARE OF CHANGES.
--- NOTE | 2019-08-15 16:15 | NUR ---
PARTIAL LINEN CHANGE PERFORMED
--- NOTE | 2019-08-15 18:18 | NUR ---
Respiratory note: RECEIVED PT ON [place]ES[place]E VENT V18, VENT CONNECTED TO RED OUTLET AND O2 SOURCE. ALARMS ARE SET AND AUDIBLE. AMBU BAG AND MASK AT BEDSIDE. BS ARE FINE COURSE IN BILATERAL BASES. MED NE TX GIVEN INLINE WITHOUT ADVERSE REACTION NOTED. WILL CONTINUE TO MONITOR Q2H AND MORE NEEDED.
[2019-08-15] MEDS: NOREPINEPHRINE 8 MG/250ML KIT 250 ML IV SCH (18:45)
--- NOTE | 2019-08-15 19:26 | NUR ---
MD DIAGNOSIS: ASTHMA, COPD EXACERBATION. INTUBATED IN ER. HIGH LEVEL DEEP SEDATION USING DIPRIVAN, FENTANYL, VERSED. ORALLY INTUBATED. ORAL NGT CLAMPED. OBESE. RIGHT UPPER EXTREMITY PICC LINE. DIURESING WITH A BUMEX DRIP AT 1MG/HR. SUCCESSFUL DIURESIS. WBC 30. HAD BMS TODAY. SIMPSON DRAINING CLEAR YELLOW LIQUID. SCDS ON. ON PRESSURE CONTROL VENTILATION, RATE 18, PRESSURE 16, 45% AND PEEP OF 12. LUNGS DIMINISHED. SKIN: HEMATOMA LEFT FLANK. LEFT BLISTER ON THIGH HAS BROKEN. ON LOVENOX. FULL CODE.
--- NOTE | 2019-08-15 20:00 | NUR ---
CO2 MONITOR 30
--- NOTE | 2019-08-15 20:00 | NUR ---
NOTED LEFT ABDOMINAL HEMATOMA (LARGE)
--- NOTE | 2019-08-15 20:01 | NUR ---
Respiratory note: AT BEDSIDE FOR ROUTINE VENT CHECK NO CHANGES MADE AT THIS TIME, ADRIAN MORALES AT BEDSIDE.
--- NOTE | 2019-08-15 22:00 | NUR ---
Respiratory note: AT BEDSIDE FOR ROUTINE VENT CHECK WILL CONTINUE TO MONITOR.MED NEB TX GIVEN INLINE WITHOUT ADVERSE REACTION.
--- NOTE | 2019-08-15 22:00 | NUR ---
CO2 MONITOR IS 36. NOTHING SUCTIONED FROM THE ETT. 40CC FROM THE NGT (DARK GREEN). ORAL CARE DONE. REPOSITIONED TO THE LEFT SIDE. PICC LINE DRESSING CHANGED. SITE SHOWED NO REDNESS, DRNG OR SWELLING. 4 IV TUBINGS CHANGED. NEW PROPOFOL AND MIDAZOLAM DRIP BOTTLE CHANGE. HELD REGLAN DUE TO DIARRHEA. NSR WITHOUT ECTOPY.
[2019-08-15] MEDS: ATORVASTATIN 20 MG TAB PO SCH (22:19)
[2019-08-16] VITALS (106 sets, daily range): BP systolic 95–172; BP diastolic 49–87
--- NOTE | 2019-08-16 | NUR ---
CO2 MONITOR 34
--- NOTE | 2019-08-16 | NUR ---
VSS. SINUS JONN /SINUS RHYTHM RATE 57-80. NO ECTOPY. LUNGS CLEAR. LARGE URINE OUTPUT. REPOSITIONED TO BACK. ORAL CARE DONE.
--- NOTE | 2019-08-16 00:07 | NUR ---
Respiratory note: AT BEDSIDE FOR ROUTINE VENT CHECK NO CHANGE MADE. WILL CONTINUE TO MONITOR.
[2019-08-16] MEDS: InsuLIN REG 1unit/0.01ml Soln (100units/ml) SC SCH ×4 (00:11→17:30)
[2019-08-16] MEDS: ACCU-CHEK COMFORT CURVE STRIP VI SCH ×4 (00:11→17:30)
[2019-08-16] MEDS: PROPOFOL 100 ML IV SCH ×7 (00:53→18:03)
[2019-08-16] MEDS: ALBUTEROL SULF 2.5 MG/0.5ML(0.5%) NEB SOLN NEB SCH ×6 (01:54→21:58)
[2019-08-16] MEDS: IPRATROPIUM BROM 0.5 MG/2.5ML INH SOL NEB SCH ×6 (01:54→21:58)
--- NOTE | 2019-08-16 01:54 | NUR ---
Respiratory note: AT BEDSIDE FOR ROUTINE VENT CHECK NO VENT CHANGE MADE. MED NEB TX GIVEN AT THIS TIME WITHOUT ADVERSE REACTION NOTED. WILL CONTINUE TO MONITOR.
--- NOTE | 2019-08-16 02:00 | NUR ---
co2 37. No change in vital signs. Following the ventilator settings. Nsr without ectopy. Oral care done. Suctioned the ETT for no secretions.
[2019-08-16] MEDS: MIDAZOLAM DRIP 50 mg/50mL 50 ML IV SCH ×3 (03:04→16:01)
--- NOTE | 2019-08-16 03:15 | NUR ---
AM LABS DRAWN
[2019-08-16] MEDS: fentaNYL Drip 2500mCg/250mlNS 250 ML IV SCH ×2 (03:37→15:20)
[2019-08-16 04:00] LABS: Hemoglobin 8.1 g/dL (12.2-16.2)
[2019-08-16 04:03] LABS: Hematocrit 23.2 % (36.0-46.0); Mean Corpuscular Hemoglobin 30.3 pg (28.0-32.0); Mean Corpuscular Hgb Conc. 34.9 g/dL (32.0-36.0); Mean Corpuscular Volume 86.7 fL (80.0-100.0); Platelet Count (auto) 86 10^3/uL (140-450); Red Blood Cells 2.67 10^6/uL (4.0-5.20); Red Cell Distribution Width 13.8 % (11.8-14.3); White Blood Cell 23.4 10^3/uL (4.4-10.8)
--- NOTE | 2019-08-16 04:15 | NUR ---
CHG BATH AND COMPLETE LINEN CHANGE. INCONTINENT OF GREEN DARK STOOL
[2019-08-16 04:20] LABS: Calcium 6.5 mg/dL (8.5-10.1); Magnesium 2.4 mg/dL (1.6-2.6); Potassium 3.2 mmol/L (3.5-5.1)
[2019-08-16 04:27] LABS: Basophils % (manual) 0 (0.0-2.0); Blast Cells 0; Eosinophils % (manual) 0 (0-7); Metamyelocytes % 0; Myelocytes % 0; Promyelocytes % 0; Reactive Lymphocytes 0
[2019-08-16 05:23] LABS: Band Neutrophils % (manual) 9
[2019-08-16 05:25] LABS: Lymphocytes % (manual) 3 (10.0-50.0); Monocytes % (manual) 5 (0-12)
[2019-08-16] MEDS: METOCLOPRAMIDE HCL 5MG/ml INJ 2ml VIAL IV SCH ×3 (05:40→22:00)
[2019-08-16] MEDS: ACETYLCYSTEINE 20%(200MG/ML) SOL 4ML NEB SCH ×3 (05:44→21:53)
[2019-08-16] MEDS: BUDESONIDE (INHALATION) 0.5 MG/2 ML NEB NEB SCH ×2 (05:44→21:58)
[2019-08-16] MEDS: BUMETANIDE INJECTION 25 MG in GIVE UN-DILUTED 0 ML IV SCH (07:13)
--- NOTE | 2019-08-16 07:40 | NUR ---
NEPHROLOGY CALLED REGARDING POTASSIUM LEVEL AWAITING CALLBACK
--- NOTE | 2019-08-16 09:05 | NUR ---
NEPHROLOGY CALLBACK ORDERS RECEIVED
[2019-08-16] MEDS: methylPREDNISolone SOD SUCC 40 MG/ML VL IV SCH (09:17)
[2019-08-16] MEDS: PANTOPRAZOLE 40 MG/10 ML VIAL INJ IV SCH (09:17)
[2019-08-16] MEDS: ENOXAPARIN SOD 30 MG/0.3 ML SYRINGE SC SCH (09:18)
[2019-08-16] MEDS: ASPirin 81 mg TAB PO SCH (09:18)
[2019-08-16] MEDS: QUEtiapine FUMARATE 25 MG TAB PO SCH ×2 (09:18→22:00)
[2019-08-16] MEDS: SODIUM CHLOR 0.9% PF (SALINE LOCK) 10ML VIAL/SYR IV SCH ×2 (09:18→22:00)
[2019-08-16] MEDS: DOXYCYCLINE 100MG/250ML 250 ML IV SCH (09:19)
[2019-08-16] MEDS: POTASSIUM CHL 20MEQ/100ML 100 ML IV SCH ×2 (09:19→11:00)
[2019-08-16] MEDS ORDERED: Jevity 1.2 Cal/Fiber 1 Liter GT SCH (10:30)
--- NOTE | 2019-08-16 11:55 | NUR ---
BOWEL MOVEMENT PATIENT HAD SMALL BOWEL MOVEMENT. PARTIAL LINEN CHANGE PERFORMED AT THIS TIME
--- NOTE | 2019-08-16 12:04 | NUR ---
Nutrition Follow-up Notes Wt.: 111.9 kg today. Pt remains intubated, no immediate family member at bedside except for RTs, RN when rounded this morning. Pt's currently sedated with Propofol @ 31.482 ml/hr providing 841 kcal from Fat, currently NPO and to start today on EN support, per nursing of Jevity 1.2 Jose Roberto @ 35 ml/hr to provide 1008 kcal, 47 gms pro and 678 ml free water. Est. Needs based on AdBW 71 [id number] kcal (20-25 kcal/kgAdBW), 71-85 gms pro (1.0-1.2 gms/kgAdBW). Will continue to monitor pertinent labs and reassess nutrient need prn Labs: Gluc 234 H, CO2 34 H, K 3.2 L, BUN 75 H, Cr 1.47 H, Ca 6.5 L; Tpro 6.2 L, Alb 2.8 L Skin: Cyrus scale 12, high risk, pt's left anterior upper thigh dry resolving blister per asparagus cutter. Pls refer to latest fishing captain's notes for further details re: tx plans. GI: Pt had 1 BM this morning per asparagus cutter. PES: Increased nutrient needs r/t acute/chronic medical condition aeb sedated, intubated, mod hypoalbuminemia, NPO. Altered nutrition related lab values r/t current/chronic medical condition aeb hyperglyc, hyperchlor, hypocalc, hypoalb, Elev RFTs, Elev LFTs, Obesity r/t food intake more than body requirement aeb 191% IBW and BMI of 39.8 kg/m2 and increased body adiposity Will continue to monitor NPO status, EN tolerance, skin status, pertinent labs and weight trend. F/u in 2 to 3 days. Rec.: 1.) If still NPO, continue EN support of Jevity 1.2 Jose Roberto @ 35 ml/hr goal rate as tolerated while on current Propofol rate. 2.) If Albumin continues trending down with improved renal labs, consider Prostat 1 pkt BID. 3.) Consider daily MVI with minerals and Asc acid 500 mgs BID prn. 4.) Advance gradually to oral diet when medically appropriate. 5.) Refer pt to RD for further nutrition education and weight monitoring upon discharge. 6.) Continue current plan of care.
--- NOTE | 2019-08-16 12:36 | NUR ---
DR. VIVAS AT BEDSIDE
--- NOTE | 2019-08-16 13:21 | NUR ---
BRONCOSCOPY 08/17/19 JESI RAI STATES HE WILL BE IN THE UNIT TODAY TO SIGN CONSENTS
[2019-08-16] MEDS ORDERED: POTASSIUM EFFERVESENT TAB 25 MEQ GT ONE (15:00)
--- NOTE | 2019-08-16 16:35 | NUR ---
FAMILY SISTER THANH UPDATED ON PATIENT STATUS. PER THANH SHE WILL BE IN LATER TO VISIT Addendum: 08/16/19 at 1835 by Dwayne Hodgson RN WRONG PATIENT
--- NOTE | 2019-08-16 17:08 | NUR ---
FAMILY SON AT BEDSIDE. UPDATED ON PATIENT STATUS. ALL QUESTIONS AND CONCERNS ADDRESSED AT THIS TIME
[2019-08-16] MEDS: NOREPINEPHRINE 8 MG/250ML KIT 250 ML IV SCH (18:45)
--- NOTE | 2019-08-16 19:30 | NUR ---
REPORT RECEIVED AND ASSUMED CARE; SEE INTERVENTIONS FOR ASSESSMENT; VS STABLE AT THIS TIME; WILL CONT. TO MONITOR.
[2019-08-16] MEDS: ATORVASTATIN 20 MG TAB PO SCH (22:00)
[2019-08-17] VITALS (102 sets, daily range): BP systolic 94–171; BP diastolic 44–72
[2019-08-17] MEDS: ACCU-CHEK COMFORT CURVE STRIP VI SCH ×5 (01:16→23:58)
[2019-08-17] MEDS: InsuLIN REG 1unit/0.01ml Soln (100units/ml) SC SCH ×5 (01:17→23:58)
[2019-08-17] MEDS: IPRATROPIUM BROM 0.5 MG/2.5ML INH SOL NEB SCH ×6 (02:09→22:11)
[2019-08-17] MEDS: ALBUTEROL SULF 2.5 MG/0.5ML(0.5%) NEB SOLN NEB SCH ×6 (02:09→22:12)
[2019-08-17 04:07] LABS: Hematocrit 22.4 % (36.0-46.0); Hemoglobin 7.9 g/dL (12.2-16.2); Mean Corpuscular Hemoglobin 30.6 pg (28.0-32.0); Mean Corpuscular Hgb Conc. 35.5 g/dL (32.0-36.0); Mean Corpuscular Volume 86.3 fL (80.0-100.0); Platelet Count (auto) 85 10^3/uL (140-450); Red Blood Cells 2.59 10^6/uL (4.0-5.20); Red Cell Distribution Width 14.1 % (11.8-14.3); White Blood Cell 20.8 10^3/uL (4.4-10.8)
[2019-08-17 04:19] LABS: BUN/Creatinine Ratio 50.3; Calcium 6.7 mg/dL (8.5-10.1); Magnesium 2.2 mg/dL (1.6-2.6); Potassium 3.3 mmol/L (3.5-5.1)
[2019-08-17 04:26] LABS: Basophils % (manual) 0 (0.0-2.0); Blast Cells 0; Eosinophils % (manual) 0 (0-7); Metamyelocytes % 0; Myelocytes % 0; Promyelocytes % 0; Reactive Lymphocytes 0
--- NOTE | 2019-08-17 04:31 | NUR ---
PT. RECEIVED A BED BATH AND PARTIAL LINEN CHANGE; PT. HAD SMALL, DK. GREE-BROWN, RUNNY STOOL; DELMY-CARE PROVIDED; PT. TOLERATED WELL.
[2019-08-17] MEDS: ACETYLCYSTEINE 20%(200MG/ML) SOL 4ML NEB SCH ×3 (05:45→22:11)
[2019-08-17] MEDS: BUDESONIDE (INHALATION) 0.5 MG/2 ML NEB NEB SCH ×2 (05:45→22:12)
[2019-08-17] MEDS: METOCLOPRAMIDE HCL 5MG/ml INJ 2ml VIAL IV SCH ×3 (06:00→22:07)
[2019-08-17] MEDS: BUMETANIDE INJECTION 25 MG in GIVE UN-DILUTED 0 ML IV SCH (06:28)
[2019-08-17 06:35] LABS: Band Neutrophils % (manual) 3; Lymphocytes % (manual) 8 (10.0-50.0); Monocytes % (manual) 6 (0-12)
--- NOTE | 2019-08-17 08:10 | NUR ---
OR Received phone call from OR nurse Frazier, updated on pt condition/GTTs, for Bronchoscopy.
[2019-08-17] MEDS: PROPOFOL 100 ML IV SCH ×3 (09:03→21:17)
[2019-08-17] MEDS: MIDAZOLAM DRIP 50 mg/50mL 50 ML IV SCH (09:04)
--- NOTE | 2019-08-17 09:42 | NUR ---
LABORATORY Received phone call from Ifrah, regarding PT/PTT unable to resolve results d/t specimen lipemic, will send sample to outside laboratory. Will notify
--- NOTE | 2019-08-17 10:10 | NUR ---
MD Dr. Keller at bedside updated on Pt condition. aware of increased WBC's, MD states from steroids, no need for antibiotics. Received new order to cover Potassium OF 3.3.
[2019-08-17] MEDS: QUEtiapine FUMARATE 25 MG TAB PO SCH ×2 (10:15→22:07)
[2019-08-17] MEDS: ASPirin 81 mg TAB PO SCH (10:15)
[2019-08-17] MEDS: PANTOPRAZOLE 40 MG/10 ML VIAL INJ IV SCH (10:15)
[2019-08-17] MEDS: SODIUM CHLOR 0.9% PF (SALINE LOCK) 10ML VIAL/SYR IV SCH ×2 (10:16→22:08)
--- NOTE | 2019-08-17 11:20 | NUR ---
OR Received phone call from DAYAMI Baptiste, updated on patient, although report already given to Karin CAMPBELL.
--- NOTE | 2019-08-17 11:30 | NUR ---
Received phone call from Dr. Wesley updated on Pt condition informed of PT/PTT unable to result Md states "no need for PT/PTT for Bronchoscopy." called to notify nurse will be late, reschedule Bronchoscopy for 0. Will notify OR.
--- NOTE | 2019-08-17 11:32 | NUR ---
OR Called and spoke to Oliva CAMPBELL, in OR of MD call to reschedule Bronchoscopy to 1230. Md number given to nurse. Secondary to she needed to speak to him.
[2019-08-17] MEDS ORDERED: NALOXONE HCL 0.4 MG/ML VIAL ONE (11:55)
[2019-08-17] MEDS ORDERED: BENZOCAINE (DENTAL) 20 % SPRAY 60ML MT ONE (11:56)
[2019-08-17] MEDS ORDERED: FLUMAZENIL 0.1 MG/ML INJ 10ML MDV IV ONE (11:56)
[2019-08-17] MEDS ORDERED: EPINEPHrine HCL 1 MG/1 ML AMP ONE (11:56)
[2019-08-17] MEDS ORDERED: LIDOCAINE 2%HCL (LOCAL ANESTH.) INJ 20ML MDV ONE (11:56)
[2019-08-17] MEDS ORDERED: MIDAZOLAM HCL 5 MG/ML-1ML VIAL ONE (11:56)
[2019-08-17] MEDS ORDERED: SODIUM CHLORIDE LOCK 0 ML ONE (11:56)
[2019-08-17] MEDS ORDERED: fentaNYL CITRATE 100 MCG/2 ML VL ONE (11:57)
[2019-08-17] MEDS ORDERED: LIDOCAINE HCL 2% TOP JELLY 5ML TOP ONE (11:57)
[2019-08-17] MEDS ORDERED: GLYCOPYRROLATE 0.2 MG/ML 1ML VIAL ONE (11:59)
[2019-08-17] MEDS: POTASSIUM CHL 20MEQ/100ML 100 ML IV SCH ×2 (12:13→14:36)
--- NOTE | 2019-08-17 12:15 | NUR ---
OR OR staff at bedside to prepare for Bronchoscopy.
[2019-08-17] MEDS ORDERED: ACETYLCYSTEINE 10 %(100MG/ML) SOL 10ML ONE (12:17)
[2019-08-17] MEDS ORDERED: ACETYLCYSTEINE 10 %(100MG/ML) SOL 4ML NEB ONE (12:30)
--- NOTE | 2019-08-17 12:50 | NUR ---
MD Dr. Wesley at bedside to perform Bronchoscopy.
--- NOTE | 2019-08-17 13:15 | NUR ---
MD Dr. Wesley finished Bronchoscopy received new orders, this nurse to input new orders.
--- NOTE | 2019-08-17 13:30 | NUR ---
RESPIRATORY RT AMAURI at bedside decreased PEEP to 10. Pt tolerating well.
--- NOTE | 2019-08-17 15:00 | NUR ---
SEDATION Versed decreased to 6mg/hr.
--- NOTE | 2019-08-17 16:00 | NUR ---
SEDATION Versed decreased to 4 mg/hr.
[2019-08-17] MEDS: fentaNYL Drip 2500mCg/250mlNS 250 ML IV SCH (16:19)
--- NOTE | 2019-08-17 17:00 | NUR ---
SEDATION Versed GTT decreased to 2mg/hr. Diprivan GTT decresed to 30mcg/hr.
--- NOTE | 2019-08-17 19:15 | NUR ---
opening note received report on full code icu patient for day shift rn. patient intubated and sedated on fent and prop. patient tolerating ventilator. stating 95% spo2. no signs of respiratory distress. sr 80's with pac's on bedside school bus monitor sbp 140's, on no pressure medications. right upper arm picc line cdi. Dick patent draining to gravity. ogt patent. multiple skin issues, for more information see interventions. for gtts and their titrations see iv spread sheet. bed set to lowest setting. all fall and safety precautions in place. pillows placed under bony prominence.
[2019-08-17] MEDS: NOREPINEPHRINE 8 MG/250ML KIT 250 ML IV SCH (20:46)
[2019-08-17] MEDS: ATORVASTATIN 20 MG TAB PO SCH (22:06)
[2019-08-17] MEDS: acetaZOLAMIDE SODIUM 500 MG VL IV SCH (22:07)
[2019-08-18] VITALS (105 sets, daily range): BP systolic 87–197; BP diastolic 45–89
--- NOTE | 2019-08-18 01:00 | NUR ---
bed bath given completed linen change, chg bath given. skin reassessed and no new break down noted
[2019-08-18] MEDS: ALBUTEROL SULF 2.5 MG/0.5ML(0.5%) NEB SOLN NEB SCH ×6 (02:24→22:44)
[2019-08-18] MEDS: IPRATROPIUM BROM 0.5 MG/2.5ML INH SOL NEB SCH ×6 (02:24→22:44)
[2019-08-18] MEDS: fentaNYL Drip 2500mCg/250mlNS 250 ML IV SCH (02:56)
[2019-08-18] MEDS: PROPOFOL 100 ML IV SCH ×4 (02:57→23:36)
[2019-08-18 04:41] LABS: Basophils # (auto) 0.1 uL; Basophils % (auto) 0.3 % (0.0-2.0); Hemoglobin 8.4 g/dL (12.2-16.2); Mean Corpuscular Volume 87.8 fL (80.0-100.0); White Blood Cell 22.9 10^3/uL (4.4-10.8)
[2019-08-18 04:43] LABS: Eosinophils # (auto) 0.2 uL; Eosinophils % (auto) 0.9 % (0.0-7.0); Lymphocytes # (auto) 1.6 uL; Mean Corpuscular Hemoglobin 29.6 pg (28.0-32.0); Mean Corpuscular Hgb Conc. 33.7 g/dL (32.0-36.0); Monocytes % (auto) 8.5 % (0.0-12.0); Neutrophils # (auto) 19.1 uL; Neutrophils % (auto) 83.3 % (37.0-80.0); Nucleated Red Blood Cells % 0.1 %; Platelet Count (auto) 101 10^3/uL (140-450); Red Blood Cells 2.85 10^6/uL (4.0-5.20)
[2019-08-18 04:46] LABS: Calcium 7.6 mg/dL (8.5-10.1)
[2019-08-18 04:49] LABS: Potassium 2.9 mmol/L (3.5-5.1)
[2019-08-18 04:51] LABS: BUN/Creatinine Ratio 47.8
--- NOTE | 2019-08-18 05:00 | NUR ---
critical lab value k 2.9. placed page out to md grover. awaiting call back.
--- NOTE | 2019-08-18 05:20 | NUR ---
received phone call from son updated on patient status after receiving correct password. all questions addressed at this time.
--- NOTE | 2019-08-18 05:30 | NUR ---
re paged for critical lab paged midou at answering service. awaiting call back.
[2019-08-18] MEDS: METOCLOPRAMIDE HCL 5MG/ml INJ 2ml VIAL IV SCH ×3 (05:59→22:19)
[2019-08-18] MEDS: ACETYLCYSTEINE 20%(200MG/ML) SOL 4ML NEB SCH ×3 (06:15→22:44)
[2019-08-18] MEDS: ACCU-CHEK COMFORT CURVE STRIP VI SCH ×3 (06:18→18:00)
[2019-08-18] MEDS: InsuLIN REG 1unit/0.01ml Soln (100units/ml) SC SCH ×3 (06:18→18:00)
--- NOTE | 2019-08-18 07:01 | NUR ---
re paged for critical lab paged midou at answering service. awaiting call back.
--- NOTE | 2019-08-18 07:15 | NUR ---
end of report gave report to day shift rn. endorsed care of labs k 2.9. informed about 3x md page. bed in lowest position. vss.
--- NOTE | 2019-08-18 08:38 | NUR ---
MD Received phone call from Dr. Keller regarding potassium level of 2.9 received new orders this RN to input into system. MD also aware of blood pressure increase to the 160's if staff tries to decrease sedation hydralazine IV received. Will carry out orders.
[2019-08-18] MEDS: POTASSIUM CHL 20MEQ/100ML 100 ML IV SCH ×4 (09:10→18:30)
[2019-08-18] MEDS: BUDESONIDE (INHALATION) 0.5 MG/2 ML NEB NEB SCH ×2 (10:29→18:28)
--- NOTE | 2019-08-18 10:29 | NUR ---
Respiratory note: TITRATED FIO2 TO 30%. RN NOTIFY.
--- NOTE | 2019-08-18 10:35 | NUR ---
NUTRITION Tube feedings re-started Jevity at 15ml/hr goal rate of 40ml/hr. Will monitor residuals.
[2019-08-18] MEDS: BUMETANIDE 2.5mg/10ml (0.25 mg/ml) INJ IV SCH (10:43)
[2019-08-18] MEDS: PANTOPRAZOLE 40 MG/10 ML VIAL INJ IV SCH (10:43)
[2019-08-18] MEDS: ASPirin 81 mg TAB PO SCH (10:44)
[2019-08-18] MEDS: acetaZOLAMIDE SODIUM 500 MG VL IV SCH ×2 (10:44→22:18)
[2019-08-18] MEDS: QUEtiapine FUMARATE 25 MG TAB PO SCH ×2 (10:44→22:19)
[2019-08-18] MEDS: SODIUM CHLOR 0.9% PF (SALINE LOCK) 10ML VIAL/SYR IV SCH ×2 (10:46→22:19)
--- NOTE | 2019-08-18 11:00 | NUR ---
SEDATION Diprivan decreased to 25mcg.
--- NOTE | 2019-08-18 12:01 | NUR ---
Nutrition Follow-up Notes Wt.: 102.7 kg based on bed scale today. Noted 9.2 kg weight loss in last 2 days likely d/t ? fluid loss aeb negative I & Os for past few days. Pt remains intubated, no immediate family member at bedside during rounds this morning. Pt's currently sedated with Propofol @ 21.228 ml/hr providing 560 kcal from Fat. Pt's s/p bronchoscopy and bronchial biopsies yesterday, currently NPO noted to resume EN support today with Jevity 1.2 Jose Roberto @ 35 ml/hr providing 1008 kcal, 47 gms pro and 678 ml free water. Est. Needs based on AdBW 71 [id number] kcal (20-25 kcal/kgAdBW), 71-85 gms pro (1.0-1.2 gms/kgAdBW). Will continue to monitor pertinent labs and reassess nutrient need prn Labs: Gluc 138 H, CO2 33 H, BUN 64 H, Cr 1.34 H, Ca 7.6 L; Tpro 6.2 L, Alb 2.8 L Skin: Cyrus scale 9, high risk, pt's left anterior upper thigh dry resolving blister per mail carrier and clerk. Pls refer to latest sales order coordinator's notes for further details re: tx plans. GI: Pt had 1 BM yesterday per mail carrier and clerk. PES: Increased nutrient needs r/t acute/chronic medical condition aeb sedated, intubated, mod hypoalbuminemia, NPO. Altered nutrition related lab values r/t current/chronic medical condition aeb hyperglyc, hyperchlor, hypocalc, hypoalb, Elev RFTs, Elev LFTs, Obesity r/t food intake more than body requirement aeb 191% IBW and BMI of 39.8 kg/m2 and increased body adiposity Will continue to monitor NPO status, EN tolerance, skin status, pertinent labs and weight trend. F/u in 2 to 3 days. Rec.: 1.) If still NPO, continue EN support of Jevity 1.2 Jose Roberto @ 40 ml/hr goal rate as tolerated while on current Propofol rate. 2.) If Albumin continues trending down with improved renal labs, consider Prostat 1 pkt BID. 3.) Consider daily MVI with minerals and Asc acid 500 mgs BID prn. 4.) Advance gradually to oral diet when medically appropriate. 5.) Refer pt to RD for further nutrition education and weight monitoring upon discharge. 6.) Continue current plan of care.
--- NOTE | 2019-08-18 12:30 | NUR ---
SEDATION Diprivan GTT decreased to 20mcg.
--- NOTE | 2019-08-18 14:00 | NUR ---
SEDATION Diprivan decreased to 10mcg.
--- NOTE | 2019-08-18 14:20 | NUR ---
MD Dr. Wesley at bedside updated on patient condition and aware of AM ABG with no new orders other than to titrate sedation off for CPAP trial once patient is awake. MD spoke to patients lakesha DENNISON, whom is at bedside, regarding plan of care and questions/concerns answered by MD.
--- NOTE | 2019-08-18 15:00 | NUR ---
SEDATION Fentanyl GTT decreased to 150mcg.
--- NOTE | 2019-08-18 16:00 | NUR ---
NUTRITION OG tube checked and verified via air bolus: zero residuals aspirated. Tube feedings continue at current rate of 15ml/hr for goal rate of 40ml/hr.
--- NOTE | 2019-08-18 16:10 | NUR ---
FAMILY Called and spoke to Elie(ELDEST son), correct password provided, informed Elie that Dr. Keller would like to have a family meeting to discuss prognosis and plan of care. Elie states " will be there at 9AM." Informed Dr. Keller of time. Dr. Keller states " Okay will be here." Addendum: 08/18/19 at 1614 by VIMAL JAIMES RN VOID WRONG PATIENT
--- NOTE | 2019-08-18 16:25 | NUR ---
MD Dr. Keller aware of potassium level of 3.0 with new orders received, this RN to input into system. Recheck potassium level in AM.
[2019-08-18] MEDS: MEROPENEM 1GM IVPB 100 ML IV SCH (16:58)
[2019-08-18] MEDS: MIDAZOLAM DRIP 50 mg/50mL 50 ML IV SCH (17:51)
[2019-08-18] MEDS: NOREPINEPHRINE 8 MG/250ML KIT 250 ML IV SCH (18:45)
--- NOTE | 2019-08-18 19:30 | NUR ---
open received report and assumed care of female patient orally intubated. pt is on fentanyl 150mcg/hr. pt has an ogt in place running Jevity. no residual noted. pt pupils are unequal but reactive. pt spontaneously opens eyes with no tracking. no purposeful movement. pt connected to icu monitors, vs are stable. pt has round large soft abd.pt has mcclellan hanging below bladder draining dark urine to gravity. scds on bilaterally. pt has optifoam to healing blister to L thigh. healing blister to r arm. L side of the neck has bruises. L arm has large bruise under blood pressure cuff. pt has r upper arm tlc. pt has pillows under susie prominences to offload pressure for comfort and safety. bed in the lowest position, wheels locked 2 side rails up. pt in full view of rn station. will continue to care for and monitor.
--- NOTE | 2019-08-18 20:13 | NUR ---
elevated temp pt has an elevated temperature 100.3, cooling measures are put in place
[2019-08-18] MEDS: hydrALAZINE HCL 20 MG/ML VL IV PRN (20:27)
--- NOTE | 2019-08-18 20:27 | NUR ---
htn meds given pt is hypertensive, prescribed bp meds given
--- NOTE | 2019-08-18 21:40 | NUR ---
son called pts son called to get an update on pts status. son provided pw and update was given. pts son denied any further questions or concerns at this time, stated he will be tomorrow to see his mom.
[2019-08-18] MEDS: ATORVASTATIN 20 MG TAB PO SCH (22:19)
--- NOTE | 2019-08-18 22:20 | NUR ---
optifoam applied to sacrum optifoam applied to sacrum for preventative measures
[2019-08-19] VITALS (100 sets, daily range): BP systolic 85–219; BP diastolic 37–87
--- NOTE | 2019-08-19 00:30 | NUR ---
bs / insulin pt bs determined the pt needed insulin according to the prescribed insulin scale. insulin was given in accordance to prescribed scale.
--- NOTE | 2019-08-19 01:45 | NUR ---
hygiene full ankit changed, partial bed bath given
[2019-08-19] MEDS: IPRATROPIUM BROM 0.5 MG/2.5ML INH SOL NEB SCH ×6 (02:28→22:19)
[2019-08-19] MEDS: ALBUTEROL SULF 2.5 MG/0.5ML(0.5%) NEB SOLN NEB SCH ×6 (02:28→22:19)
[2019-08-19] MEDS: hydrALAZINE HCL 20 MG/ML VL IV PRN ×2 (04:32→13:50)
[2019-08-19 04:33] LABS: Hemoglobin 8.2 g/dL (12.2-16.2)
[2019-08-19 04:36] LABS: Hematocrit 24.4 % (36.0-46.0); Mean Corpuscular Hemoglobin 30.1 pg (28.0-32.0); Mean Corpuscular Hgb Conc. 33.7 g/dL (32.0-36.0); Mean Corpuscular Volume 89.4 fL (80.0-100.0); Platelet Count (auto) 94 10^3/uL (140-450); Red Blood Cells 2.73 10^6/uL (4.0-5.20); Red Cell Distribution Width 14.4 % (11.8-14.3); White Blood Cell 20.5 10^3/uL (4.4-10.8)
[2019-08-19 04:53] LABS: Basophils % (manual) 0 (0.0-2.0); Blast Cells 0; Metamyelocytes % 0; Myelocytes % 0; Promyelocytes % 0; Reactive Lymphocytes 0
[2019-08-19 04:57] LABS: BUN/Creatinine Ratio 45.7; Calcium 8.4 mg/dL (8.5-10.1); Magnesium 2.4 mg/dL (1.6-2.6)
[2019-08-19] MEDS: MEROPENEM 1GM IVPB 100 ML IV SCH ×2 (05:00→17:16)
--- NOTE | 2019-08-19 05:28 | NUR ---
critical k lab called critical k+. 2.9 hospitalist paged awaiting call back
[2019-08-19 05:30] LABS: Potassium 2.9 mmol/L (3.5-5.1)
--- NOTE | 2019-08-19 05:34 | NUR ---
hospitalist returned the call hospitalist updated on critical lab values, orders received. orb, hospitalist confirmed orb were correct.
[2019-08-19 05:51] LABS: Band Neutrophils % (manual) 6; Eosinophils % (manual) 2 (0-7); Lymphocytes % (manual) 6 (10.0-50.0); Monocytes % (manual) 3 (0-12)
[2019-08-19] MEDS: ACETYLCYSTEINE 20%(200MG/ML) SOL 4ML NEB SCH ×3 (05:56→22:19)
[2019-08-19] MEDS: ACCU-CHEK COMFORT CURVE STRIP VI SCH ×4 (05:58→18:07)
[2019-08-19] MEDS: POTASSIUM CHL 20MEQ/100ML 100 ML IV SCH ×4 (05:58→15:37)
[2019-08-19] MEDS: METOCLOPRAMIDE HCL 5MG/ml INJ 2ml VIAL IV SCH ×3 (05:58→22:25)
[2019-08-19] MEDS: InsuLIN REG 1unit/0.01ml Soln (100units/ml) SC SCH ×4 (06:01→18:07)
--- NOTE | 2019-08-19 06:02 | NUR ---
bs / insulin pt bs determined the pt needed insulin according to the prescribed insulin scale. insulin was given in accordance to prescribed scale.
--- NOTE | 2019-08-19 06:18 | NUR ---
son called pts son called to get an update on pts status. son provided pw and update was given. pts son denied any further questions or concerns at this time.
--- NOTE | 2019-08-19 06:37 | NUR ---
elevated bp dr called pt has elevated bp, prescribed medication is not due for another 2 hours. left vmail on dr answering service. awaiting call back
--- NOTE | 2019-08-19 08:00 | NUR ---
SEDATION Diprivan GTT turned off. Fentanyl GTT increased to 100mcg.
[2019-08-19] MEDS: fentaNYL Drip 2500mCg/250mlNS 250 ML IV SCH (08:15)
--- NOTE | 2019-08-19 08:30 | NUR ---
BLOOD PRESSURE/TEMPERATURE Repositioned blood pressure cuff and received blood pressure of 156/66. Patients temperature of 100.7 cooling measures applied (ice packs and cool wash cloth).
[2019-08-19] MEDS: PANTOPRAZOLE 40 MG/10 ML VIAL INJ IV SCH (10:11)
[2019-08-19] MEDS: QUEtiapine FUMARATE 25 MG TAB PO SCH ×2 (10:11→22:25)
[2019-08-19] MEDS: ASPirin 81 mg TAB PO SCH (10:11)
[2019-08-19] MEDS: BUMETANIDE 2.5mg/10ml (0.25 mg/ml) INJ IV SCH (10:12)
[2019-08-19] MEDS: SODIUM CHLOR 0.9% PF (SALINE LOCK) 10ML VIAL/SYR IV SCH ×2 (10:13→22:00)
[2019-08-19] MEDS: acetaZOLAMIDE SODIUM 500 MG VL IV SCH ×2 (10:13→22:25)
[2019-08-19] MEDS: BUDESONIDE (INHALATION) 0.5 MG/2 ML NEB NEB SCH ×2 (10:18→22:19)
--- NOTE | 2019-08-19 10:40 | NUR ---
MD Dr. Keller at bedside updated on patient condition with new orders received, MD to input into system. MD spoke to patients lakesha Ireland, whom is at bedside, regarding plan of care and questions/concerns answered by MD.
[2019-08-19] MEDS ORDERED: METOPROLOL TARTRATE 25 MG TAB PO ONE (11:00)
--- NOTE | 2019-08-19 12:00 | NUR ---
NUTRITION Checked OG tube and verified via air bolus: 80mls of residuals obtained. Will continue to keep patient NPO.
[2019-08-19 12:12] LABS: Urine Bacteria NONE SEEN /hpf (None Seen); Urine Blood 3+ /uL (Negative); Urine Specific Gravity 1.009 (1.001-1.035); Urine WBC 8 /hpf (0 - 5); Urine WBC Clumps PRESENT /hpf (None Seen)
--- NOTE | 2019-08-19 12:45 | NUR ---
MD Dr. Keller called and left message through his exchange, awaiting for call back to inform of Potassium of 3.0.
--- NOTE | 2019-08-19 15:00 | NUR ---
MD Dr. Keller called and left message through his exchange, awaiting for call back to inform of increase in blood pressure after Hydralazine PRN and needed another blood pressure PRN.
--- NOTE | 2019-08-19 16:15 | NUR ---
MD Dr. Keller called and is aware of blood pressure increased into the 200's and heart rate up in the 130's. Informed MD that this RN started Diprivan once again and doing better. No new orders at this time.
[2019-08-19] MEDS: MIDAZOLAM DRIP 50 mg/50mL 50 ML IV SCH (17:51)
[2019-08-19] MEDS: NOREPINEPHRINE 8 MG/250ML KIT 250 ML IV SCH (18:45)
--- NOTE | 2019-08-19 19:20 | NUR ---
open received report and assumed care of female patient orally intubated. pt is on fentanyl 150mcg/hr and propofol 20mcg/kg/min. pt has an ogt, placment verified, and it is clamped. 80 of jevity residual. pt pupils are unequal but reactive. pt not spontaneously opening eyes, pt does not track. no purposeful movement. pt connected to icu monitors, vs are stable. pt has round large soft abd.pt has mcclellan hanging below bladder draining dark urine to gravity. scds on to l leg, bp cuff to r leg. pt has optifoam to healing blister to L thigh. healing blister to r arm. L side of the neck has bruises. L arm has large bruise.. pt has r upper arm tlc. pt has pillows under susie prominences to offload pressure for comfort and safety. bed in the lowest position, wheels locked 2 side rails up. pt in full view of rn station. will continue to care for and monitor.
[2019-08-19] MEDS: POTASSIUM EFFERVESENT TAB 25 MEQ GT SCH (22:24)
[2019-08-19] MEDS: ATORVASTATIN 20 MG TAB PO SCH (22:25)
[2019-08-19] MEDS: METOPROLOL TARTRATE 25 MG TAB PO SCH (22:25)
--- NOTE | 2019-08-19 23:30 | NUR ---
residual pt still has +80 ml of Jevity residual, will continue to keep feedings off at this time
[2019-08-20] VITALS (97 sets, daily range): BP systolic 98–199; BP diastolic 48–77
--- NOTE | 2019-08-20 00:10 | NUR ---
bs / insulin pt bs determined the pt did not need insulin according to the prescribed insulin scale.no insulin was given in accordance to prescribed scale
[2019-08-20] MEDS: fentaNYL Drip 2500mCg/250mlNS 250 ML IV SCH (01:01)
--- NOTE | 2019-08-20 01:45 | NUR ---
hygiene partial ankit changed, bed bath given. pt tolerates care. pts bp rises with stimulation
[2019-08-20] MEDS: IPRATROPIUM BROM 0.5 MG/2.5ML INH SOL NEB SCH ×6 (02:23→22:14)
[2019-08-20] MEDS: ALBUTEROL SULF 2.5 MG/0.5ML(0.5%) NEB SOLN NEB SCH ×6 (02:24→22:14)
--- NOTE | 2019-08-20 03:15 | NUR ---
suction canisters and tubing changed
[2019-08-20 04:39] LABS: Basophils # (auto) 0.1 uL; Eosinophils # (auto) 0.3 uL; Hemoglobin 8.2 g/dL (12.2-16.2); Mean Corpuscular Hemoglobin 29.7 pg (28.0-32.0); Mean Corpuscular Hgb Conc. 32.6 g/dL (32.0-36.0); Monocytes # (auto) 1.4 uL
[2019-08-20 04:42] LABS: Basophils % (auto) 0.3 % (0.0-2.0); Eosinophils % (auto) 1.4 % (0.0-7.0); Hematocrit 25.1 % (36.0-46.0); Lymphocytes # (auto) 0.6 uL; Mean Corpuscular Volume 91.1 fL (80.0-100.0); Monocytes % (auto) 6.5 % (0.0-12.0); Neutrophils # (auto) 18.4 uL; Neutrophils % (auto) 88.8 % (37.0-80.0); Platelet Count (auto) 108 10^3/uL (140-450); Red Blood Cells 2.76 10^6/uL (4.0-5.20); Red Cell Distribution Width 14.9 % (11.8-14.3); White Blood Cell 20.7 10^3/uL (4.4-10.8)
[2019-08-20 04:51] LABS: Calcium 8.6 mg/dL (8.5-10.1); Magnesium 2.7 mg/dL (1.6-2.6); Potassium 3.8 mmol/L (3.5-5.1)
[2019-08-20] MEDS: MEROPENEM 1GM IVPB 100 ML IV SCH ×2 (05:11→18:18)
[2019-08-20] MEDS: InsuLIN REG 1unit/0.01ml Soln (100units/ml) SC SCH ×4 (06:00→18:00)
[2019-08-20] MEDS: ACCU-CHEK COMFORT CURVE STRIP VI SCH ×4 (06:01→18:15)
[2019-08-20] MEDS: METOCLOPRAMIDE HCL 5MG/ml INJ 2ml VIAL IV SCH ×3 (06:01→23:23)
[2019-08-20] MEDS: ACETYLCYSTEINE 20%(200MG/ML) SOL 4ML NEB SCH ×3 (06:15→22:14)
--- NOTE | 2019-08-20 06:15 | NUR ---
rt at bedside
[2019-08-20] MEDS: BUDESONIDE (INHALATION) 0.5 MG/2 ML NEB NEB SCH ×2 (06:16→18:15)
--- NOTE | 2019-08-20 06:17 | NUR ---
bs / insulin pt bs determined the pt did not need insulin according to the prescribed insulin scale.no insulin was given in accordance to prescribed scale
--- NOTE | 2019-08-20 07:00 | NUR ---
AM ASSESSMENT COMPLETED, MONITOR ALARMS VERIFIED, ORAL CARE PROVIDED, REPOSITIONED FOR COMFORT.
[2019-08-20] MEDS: DexMEDEtomidine 400 MCG in D5W 5% 96 ML IV SCH ×2 (09:08→18:14)
--- NOTE | 2019-08-20 09:16 | NUR ---
STARTED TITRATING DOWN PROPOFOL, PT'S PUPILS NOW EQUAL AND REACTIVE TO LIGHT, PT NOW BLINKING BOTH EYES. BP WENT FROM THE 140'S TO 190'S, STARTED PRECEDEX GTT, TO DECREASE ANXIETY, WILL TITRATE ACCORDINGLY. SEE IV FLOW SHEET.
[2019-08-20] MEDS: PANTOPRAZOLE 40 MG/10 ML VIAL INJ IV SCH (10:03)
[2019-08-20] MEDS: acetaZOLAMIDE SODIUM 500 MG VL IV SCH ×2 (10:06→23:24)
[2019-08-20] MEDS: POTASSIUM EFFERVESENT TAB 25 MEQ GT SCH ×2 (10:07→23:23)
[2019-08-20] MEDS: BUMETANIDE 2.5mg/10ml (0.25 mg/ml) INJ IV SCH (10:07)
[2019-08-20] MEDS: QUEtiapine FUMARATE 25 MG TAB PO SCH ×2 (10:08→19:31)
[2019-08-20] MEDS: ASPirin 81 mg TAB PO SCH (10:09)
[2019-08-20] MEDS: METOPROLOL TARTRATE 25 MG TAB PO SCH ×2 (10:09→23:23)
[2019-08-20] MEDS: SODIUM CHLOR 0.9% PF (SALINE LOCK) 10ML VIAL/SYR IV SCH ×2 (10:10→22:00)
--- NOTE | 2019-08-20 10:30 | NUR ---
WOUND CARE NOTE: IN TO SEE PATIENT FOR SKIN INTEGRITY MONITORING. PATIENT CONTINUES TO BE INTUBATED, SEDATED. SHE HAS CURRENT JI SCORE OF 10. PATIENT'S LEFT ANTERIOR THIGH WOUND IS NOW CLOSED AND RESOLVED. LEFT OPEN TO AIR. SHE HAS DEVELOPED A SMALL SKIN TEAR TO THE RIGHT UPPER EXTREMITY. WOUND IS PARTIAL THICKNESS, PINK WOUND BED AND PERIWOUND, SCANT SEROUS DRAINAGE. APPLIED THERAHONEY AND OPTIFOAM GENTLE DRESSING. ALL BONY PROMINENCES ARE PINK, BLANCHABLE. NO OTHER SKIN INTEGRITY ISSUES NOTED AT THIS TIME. RECOMMEND: Q 3 DAY/PRN DRESSING CHANGE TO RIGHT ARM WOUND, CONTINUATION WITH ALL OTHER WOUND CARE ORDERS PREVIOUSLY PRESCRIBED BY MD. Addendum: 08/20/19 at 1737 by Thelma Ramires RN Amended: Links added.
[2019-08-20] MEDS: MIDAZOLAM DRIP 50 mg/50mL 50 ML IV SCH (17:51)
[2019-08-20] MEDS: PROPOFOL 100 ML IV SCH (18:02)
[2019-08-20] MEDS: NOREPINEPHRINE 8 MG/250ML KIT 250 ML IV SCH (18:45)
--- NOTE | 2019-08-20 19:30 | NUR ---
open received report and assumed care of female patient orally intubated. pt is on PRECEDEX . pt has an ogt, placment verified, and it is clamped. pt pupils are unequal but reactive. pt not spontaneously opening eyes, pt does not track. no purposeful movement. pt connected to icu monitors, vs are stable. pt has round large soft abd.pt has mcclellan hanging below bladder draining dark urine to gravity. scds on to l leg, bp cuff to r leg. pt has optifoam to healing blister to L thigh. healing blister to r arm. L side of the neck has bruises. L arm has large bruise. pt has r upper arm tlc. pt has pillows under susie prominences to offload pressure for comfort and safety. bed in the lowest position, wheels locked, 2 side rails up. pt in full view of rn station. will continue to care for and monitor.
--- NOTE | 2019-08-20 20:40 | NUR ---
RECEIVED PHONE REGARDING TRANSFER JOHN YUNIOR PAEDIATRIC PHYSIOTHERAPIST SAID HE FOUND A BED THAT WOULD BE WILLING AND ABLE TO TAKE THE PT AT [facility] IN [place]. RODRI ABARCA PLAN WAS TO TRY TO CPAP PT IN THE AM. DR TALBOT WILL BE CALLED TO VERIFY THIS TRANSFER IS STILL OK. JOHN NUMBER [phone]
--- NOTE | 2019-08-20 20:45 | NUR ---
RECIEVED CALL FROM [facility] REP TO INFORM OF BED AVAILABILITY AT [facility] IN [place], ACCEPTING MD DR. TORREZ, REQUEST THAT DR. TALBOT BE NOTIFIED AND INFORMED, PRIMARY NURSE CORA MADE AWARE
--- NOTE | 2019-08-20 20:50 | NUR ---
PAGED DR TALBOT PAGED DR TALBOT TO ASK IF HE WOULD LIKE THE PT TO BE TRANSFERRED. AWAITING CALL BACK
--- NOTE | 2019-08-20 21:11 | NUR ---
DR TALBOT RETURNED CALL DR TALBOT UPDATED ON THE TRANSFER SITUATION. DR TALBOT STATED HE WILL CALL THE SON TO SEE IF THE SON WANTS TO TRANSFER TONIGHT. IF THE SON SAYS OK THEN SAID IT WILL BE OK WITH HIM. DR TALBOT SAID HE IS GOING TO CALL AND SPEAK TO THE SON AND CALL BACK.
--- NOTE | 2019-08-20 21:35 | NUR ---
DR TALBOT CALLED BACK DR TALBOT STATED HE SPOKE TO THE SON AND THE SON DOESNT WANT TO TRANSFER TONIGHT, THAT THE SON WANTS TO SPEAK TO CATHOLIC PRIEST PRIOR TO TRANSFER. DR TALBOT SAID TO KEEP THE PT AT [facility] UNTIL TOMORROW SO THE SON CAN SPEAK TO THE CATHOLIC PRIEST.
--- NOTE | 2019-08-20 21:50 | NUR ---
PTS SON CALLED PT PROVIDED PW AND PT STATUS WAS GIVEN TO THE PTS SON. PTS SON STATED HE WAS CONFUSED AFTER TALKING TO DR. TALBOT AND DIDNT UNDERSTAND WHAT THE DR WAS TELLING HIM AND THAT HE WANTED TO KEEP HIS MOTHER AT [facility] UNTIL HE CAN SPEAK TO THE RN PEDIATRIC REGARDING HER CARE AND STATUS. PT STATED HE DOES NOT WANT TO TRANSFER HIS MOTHER OUT [facility]
--- NOTE | 2019-08-20 21:55 | NUR ---
CALLED JOHN FROM [facility] INFORMED JOHN OF THE SITUATION AND THE SON WANTING TO WAIT TELL THE FOLLOWING DAY TO TRANSFER HIS MOTHER. JOHN STATED HE WILL INSERT A NOTE AND SOMEONE FROM [facility] WILL FOLLOW UP TOMORROW REGARDING TRANSFER
[2019-08-20] MEDS: ATORVASTATIN 20 MG TAB PO SCH (23:23)
[2019-08-21] VITALS (51 sets, daily range): BP systolic 105–225; BP diastolic 53–80
[2019-08-21] MEDS: ALBUTEROL SULF 2.5 MG/0.5ML(0.5%) NEB SOLN NEB SCH ×3 (02:17→10:05)
[2019-08-21] MEDS: IPRATROPIUM BROM 0.5 MG/2.5ML INH SOL NEB SCH ×3 (02:17→10:05)
[2019-08-21 04:01] LABS: Basophils # (auto) 0.1 uL; Basophils % (auto) 0.5 % (0.0-2.0); Eosinophils # (auto) 0.5 uL; Hematocrit 23.9 % (36.0-46.0); Hemoglobin 7.8 g/dL (12.2-16.2); Lymphocytes # (auto) 0.9 uL; Lymphocytes % (auto) 4.8 % (10.0-50.0); Mean Corpuscular Hemoglobin 29.6 pg (28.0-32.0); Mean Corpuscular Hgb Conc. 32.6 g/dL (32.0-36.0); Mean Corpuscular Volume 90.9 fL (80.0-100.0); Monocytes % (auto) 5.4 % (0.0-12.0); Neutrophils # (auto) 15.4 uL; Neutrophils % (auto) 86.3 % (37.0-80.0); Nucleated Red Blood Cells % 0.1 %; Platelet Count (auto) 122 10^3/uL (140-450); Red Blood Cells 2.63 10^6/uL (4.0-5.20); Red Cell Distribution Width 14.8 % (11.8-14.3); White Blood Cell 17.9 10^3/uL (4.4-10.8)
[2019-08-21 04:18] LABS: Calcium 8.8 mg/dL (8.5-10.1); Magnesium 2.6 mg/dL (1.6-2.6); Potassium 3.5 mmol/L (3.5-5.1)
[2019-08-21 04:21] LABS: BUN/Creatinine Ratio 55.1
[2019-08-21] MEDS: MEROPENEM 1GM IVPB 100 ML IV SCH (05:00)
[2019-08-21] MEDS: METOCLOPRAMIDE HCL 5MG/ml INJ 2ml VIAL IV SCH (05:36)
[2019-08-21] MEDS: ACCU-CHEK COMFORT CURVE STRIP VI SCH ×3 (05:38→12:48)
[2019-08-21] MEDS: InsuLIN REG 1unit/0.01ml Soln (100units/ml) SC SCH ×3 (05:39→12:00)
[2019-08-21] MEDS: ACETYLCYSTEINE 20%(200MG/ML) SOL 4ML NEB SCH (05:56)
--- NOTE | 2019-08-21 07:00 | NUR ---
AM ASSESSMENT COMPLETED. PRECEDEX TURNED OFF, PT REMAINS UNRESPONSIVE, PUPILS REACTIVE TO LIGHT, GOOD COUGH & GAG REFLEX, FACIAL GRIMACING TO PAINFUL STIMULI. NO MOVEMENT TO UPPER OR LOWER EXTREMITIES. PT REMAINS INTUBATED, AWAITING FOR HER TO WAKE UP FOR CPAP TRIAL, PT'S SON REFUSED FOR HER TO GO TO HIGHER LEVEL OF CARE FOR TRACH PLACEMENT HE WANTS TO WAIT FOR PT TO WAKE UP AND HAVE CPAP TRIAL 1ST AND IF SHE FAILS THEN SEND HER TO GET TRACH PLACEMENT. PT HAS BEEN COMPLETELY OFF SEDATION SINCE 1500 YESTERDAY BUT DIS RECEIVE SEROQUIL IN AM. ORAL CARE PROVIDED AND REPOSITIONED FOR COMFORT.
[2019-08-21] MEDS: hydrALAZINE HCL 20 MG/ML VL IV PRN (08:57)
[2019-08-21] MEDS: FREE WATER GT SCH ×3 (09:01→12:53)
--- NOTE | 2019-08-21 09:07 | NUR ---
HYPERTENSION SBP INTHE 200'S, MEDICATED WITH HYDRALAZINE IVP.
--- NOTE | 2019-08-21 09:25 | NUR ---
0915 08/21/19 Contacted Su loja [facility] to discuss the transfer order for this patient-per Delia she is on the other line and will give me a call back.
--- NOTE | 2019-08-21 09:27 | NUR ---
PAGED DR. PARR TO CALL TO SPEAK TO PT'S SON REGARDING PT'S TRANSFER TO HIGHER LEVEL OF CARE. PT'S SON HAS DONE THE RESEARCH AND HAS COME TO TERMS THAT PT MIGHT STILL REQUIRE TRACH AFTER ALL. DR. TALBOT WAS STILL IN HOSPITAL , HE CAME BACK IN TO SEE PT'S SON RIGHT AWAY.
[2019-08-21] MEDS: QUEtiapine FUMARATE 25 MG TAB PO SCH (10:00)
[2019-08-21] MEDS: POTASSIUM EFFERVESENT TAB 25 MEQ GT SCH (10:04)
[2019-08-21] MEDS: METOPROLOL TARTRATE 25 MG TAB PO SCH (10:05)
[2019-08-21] MEDS: ASPirin 81 mg TAB PO SCH (10:05)
[2019-08-21] MEDS: PANTOPRAZOLE 40 MG/10 ML VIAL INJ IV SCH (10:05)
[2019-08-21] MEDS: BUDESONIDE (INHALATION) 0.5 MG/2 ML NEB NEB SCH (10:05)
[2019-08-21] MEDS: SODIUM CHLOR 0.9% PF (SALINE LOCK) 10ML VIAL/SYR IV SCH (10:06)
[2019-08-21] MEDS: BUMETANIDE 2.5mg/10ml (0.25 mg/ml) INJ IV SCH (10:06)
[2019-08-21] MEDS: acetaZOLAMIDE SODIUM 500 MG VL IV SCH (10:07)
--- NOTE | 2019-08-21 10:58 | NUR ---
Patient will be going to [facility] ICU bed 4-nurse to call report to [phone] extension [phone]-Dr. Lyons accepting-[facility] to merchandise pickup/receiving associate at 1300 (critical care transport)-I relayed this information to nurse Boucher.
--- NOTE | 2019-08-21 12:20 | NUR ---
REPORT GIVEN TO EDIE MOELLER ICU STAFF. PT WILL BE PICKED UP AT 1300, CALL BACK # PROVIDED.
[2019-08-21] MEDS: fentaNYL Drip 2500mCg/250mlNS 250 ML IV SCH (12:48)
[2019-08-21] MEDS ORDERED: MEROPENEM 1GM IVPB 100 ML IV SCH (13:00)
--- NOTE | 2019-08-21 13:00 | NUR ---
[facility] HERE TO DIGITAL SALES ASSISTANT PT FOR TRANSPORTING TO [facility], BEDSIDE REPORT GIVEN. PT REMAINS ON FENTANYL GTT FOR SEDATION AT 200 MCG/MIN FOR SEDATION D/T HYPERTENSION FOR PT TO TOLERATE TRANSPORT. PT'S BP WAS ELEVATED ALL THE WAY TO THE 220'S AND WAS NOT RESPONDING TO HYDRALAZINE.
== END 2019-08-21 13:00 | DRG 870 ==
LOC: ER 17:30 → EDBD 17:30 → TELE 17:31 → ICU WEST 22:05
PROVIDERS: ADMIT Internal Medicine; ATTEND Internal Medicine Geriatric Medicine
PROC: 5A1955Z Respiratory Ventilation, Greater than 96 Consecutive Hours (ICD-10-PCS; principal; 2019-08-04)
PROC: 0BH17EZ Insertion of Endotracheal Airway into Trachea, Via Natural or Artificial Opening (ICD-10-PCS; 2019-08-04)
PROC: 05H433Z Insertion of Infusion Device into Left Innominate Vein, Percutaneous Approach (ICD-10-PCS; 2019-08-09)
PROC: B54NZZA Ultrasonography of Left Upper Extremity Veins, Guidance (ICD-10-PCS; 2019-08-09)
PROC: 0B958ZZ Drainage of Right Middle Lobe Bronchus, Via Natural or Artificial Opening Endoscopic (ICD-10-PCS; 2019-08-09)
PROC: 0B968ZZ Drainage of Right Lower Lobe Bronchus, Via Natural or Artificial Opening Endoscopic (ICD-10-PCS; 2019-08-09)
PROC: 0B998ZX Drainage of Lingula Bronchus, Via Natural or Artificial Opening Endoscopic, Diagnostic (ICD-10-PCS; 2019-08-17)
PROC: 0BD58ZX Extraction of Right Middle Lobe Bronchus, Via Natural or Artificial Opening Endoscopic, Diagnostic (ICD-10-PCS; 2019-08-17)
PROC: 0B968ZX Drainage of Right Lower Lobe Bronchus, Via Natural or Artificial Opening Endoscopic, Diagnostic (ICD-10-PCS; 2019-08-17)
DX: A41.9 Sepsis, unspecified organism (principal); I21.4 Non-ST elevation (NSTEMI) myocardial infarction; J96.01 Acute respiratory failure with hypoxia; N17.0 Acute kidney failure with tubular necrosis; J96.02 Acute respiratory failure with hypercapnia; E87.2 Acidosis; J44.1 Chronic obstructive pulmonary disease with (acute) exacerbation; J45.901 Unspecified asthma with (acute) exacerbation; Z68.41 Body mass index [BMI] 40.0-44.9, adult; E87.4 Mixed disorder of acid-base balance; E87.0 Hyperosmolality and hypernatremia; D64.9 Anemia, unspecified; E66.01 Morbid (severe) obesity due to excess calories; E87.6 Hypokalemia; E87.70 Fluid overload, unspecified; G72.89 Other specified myopathies; T43.595A Adverse effect of other antipsychotics and neuroleptics, initial encounter; K21.9 Gastro-esophageal reflux disease without esophagitis; Z90.49 Acquired absence of other specified parts of digestive tract; Z90.710 Acquired absence of both cervix and uterus; Z79.82 Long term (current) use of aspirin; Z79.51 Long term (current) use of inhaled steroids; Z88.5 Allergy status to narcotic agent; Y92.89 Other specified places as the place of occurrence of the external cause; Z68.38 Body mass index [BMI] 38.0-38.9, adult; T79.8XXA Other early complications of trauma, initial encounter; T88.8XXA Other specified complications of surgical and medical care, not elsewhere classified, initial encounter; Y83.8 Other surgical procedures as the cause of abnormal reaction of the patient, or of later complication, without mention of misadventure at the time of the procedure
CPT/HCPCS: 31500; 31622; 31624; 36415; 36569; 36600; 71045; 71250; 80048; 80053; 80202; 81001; 82550; 82805; 82962; 83605; 83735; 83880; 84132; 84484; 85007; 85025; 85027; 85610; 85730; 86606; 86612; 86635; 86698; 86738; 87040; 87070; 87077; 87081; 87086; 87088; 87186; 87205; 87278; 87804; 93005; 93306; 93970; 94002; 94003; 94640; 94644; 94645; 99291; C9113; G0378; J0132; J0171; J0330; J1815; J1956; J2185; J2250; J2543; J2704; J3480; J3490; J7060; P9047; Q9956